=== PATIENT | female | born 1935 | race Caucasian/White ===

== ENCOUNTER 2016-04-01 16:59 | Emergency (ER) | payer OTHER ==
[~2016-04-01] VITALS: Ht 157.5 cm; Wt 59.9 kg
[~2016-04-01 16:59] MED LIST: ATEN-60; CETI10CH3; DIGO0.1262; FURO20TA3; LISI-275; OME20GT; POTA10CA29; WARF2.5T; WARF5TAB OR
[2016-04-01 18:03] LABS: Basophils # (auto) 0 uL; Basophils % (auto) 0.3 % (0.0-2.0); Eosinophils # (auto) 0.2 uL; Eosinophils % (auto) 2.6 % (0.0-7.0); Hematocrit 42.2 % (36.0-46.0); Hemoglobin 13.9 g/dL (12.2-16.2); Lymphocytes # (auto) 1.1 uL; Mean Corpuscular Hemoglobin 31.5 pg (28.0-32.0); Mean Corpuscular Hgb Conc. 32.8 g/dL (32.0-36.0); Mean Platelet Volume 8.3 fL (7.4-10.4); Monocytes # (auto) 0.5 uL; Monocytes % (auto) 6.7 % (0.0-12.0); Neutrophils # (auto) 5.9 uL; Neutrophils % (auto) 76.4 % (37.0-80.0); Platelet Count (auto) 210 10^3/uL (140-450); Red Cell Distribution Width 14.7 % (11.6-16.0); White Blood Cell 7.7 10^3/uL (4.4-10.8)
[2016-04-01 18:18] LABS: Albumin 3.8 g/dL (3.4-5.0); BUN/Creatinine Ratio 16.3; Bilirubin, Total 0.7 mg/dL (0.2-1.0); Calcium 9.3 mg/dL (8.5-10.1); Magnesium 2.2 mg/dL (1.6-2.6); Potassium 3.7 mmol/L (3.5-5.1); Total Protein 7.6 g/dL (6.4-8.2)
[2016-04-02 03:59] VITALS: BP 139/110
== END 2016-04-02 05:10 | disposition home or self-care (01) ==
LOC: ER 17:01
DX: I51.7 Cardiomegaly (principal); I48.91 Unspecified atrial fibrillation; Z95.0 Presence of cardiac pacemaker; I10 Essential (primary) hypertension; E78.5 Hyperlipidemia, unspecified
CPT/HCPCS: 36415; 71020; 80053; 83735; 84484; 85025; 85049; 93005

== ENCOUNTER 2016-09-04 11:03 | Inpatient (IN) | payer OTHER ==
[~2016-09-04] VITALS: Ht 157.5 cm; Wt 58.2 kg
[2016-09-04 11:56] LABS: Basophils # (auto) 0 uL; CONDITION Y; Eosinophils # (auto) 0 uL; Eosinophils % (auto) 0.1 % (0.0-7.0); Hematocrit 46.5 % (36.0-46.0); Hemoglobin 15.6 g/dL (12.2-16.2); Lymphocytes # (auto) 1.4 uL; Lymphocytes % (auto) 9.9 % (10.0-50.0); Mean Corpuscular Hemoglobin 32.3 pg (28.0-32.0); Mean Corpuscular Hgb Conc. 33.6 g/dL (32.0-36.0); Mean Platelet Volume 8.2 fL (7.4-10.4); Monocytes # (auto) 0.4 uL; Monocytes % (auto) 3.1 % (0.0-12.0); Neutrophils # (auto) 11.9 uL; Neutrophils % (auto) 86.9 % (37.0-80.0); Platelet Count (auto) 265 10^3/uL (140-450); Red Cell Distribution Width 15.7 % (11.6-16.0); White Blood Cell 13.8 10^3/uL (4.4-10.8)
[2016-09-04 12:18] LABS: BUN/Creatinine Ratio 12.9; Bilirubin, Total 0.8 mg/dL (0.2-1.0); Magnesium 2.4 mg/dL (1.6-2.6); Potassium 3.3 mmol/L (3.5-5.1); Total Protein 8.3 g/dL (6.4-8.2)
[2016-09-04] MEDS: SODIUM CHLORIDE 0.9% 1,000 ML IV SCH ×2 (13:00→13:21)
[2016-09-04] MEDS ORDERED: MORPHINE SULF INJ 2 MG/ML SYRINGE 1ML IV ONE (13:00)
[2016-09-04] MEDS ORDERED: ONDANSETRON HCL 4 MG/2 ML VIAL IV ONE (13:15)
[2016-09-04 13:20] LABS: Partial Thromboplastin Time 32.9 sec (22.64-33.71)
[2016-09-04 13:22] LABS: INR 2.26 (0.9-1.15); Prothrombin Time 24.8 sec (9.37-12.3)
[2016-09-04] MEDS ORDERED: PIPERACILLIN-TAZOB 3.375GM 100 ML IV ONE (14:15)
[2016-09-04 14:34] LABS: Urine Bilirubin Negative (Negative); Urine Blood Negative /uL (Negative); Urine Color Yellow (Yellow); Urine Ketone TRACE (Negative); Urine Nitrite Negative (Negative); Urine RBC 1 /hpf (0 - 4); Urine Urobilinogen Normal (Negative)
[2016-09-04 14:35] LABS: Urine Glucose 3+ mg/dL (Normal)
[2016-09-04 14:46] LABS: B-Type Natriuretic Peptide 404.43 pg/mL (0-100)
[2016-09-04 14:49] LABS: Temperature: 22.5 C (20.0-25.0)
[2016-09-04] MEDS ORDERED: PANTOPRAZOLE SODIUM 40 MG/10 ML VIAL IV ONE (15:45)
[2016-09-04] MEDS ORDERED: MORPHINE SULF INJ 2 MG/ML SYRINGE 1ML IV PRN (15:45)
[2016-09-04] MEDS ORDERED: SODIUM CHLORIDE 0.9% 1,000 ML IV ONE (15:45)
[2016-09-04] MEDS ORDERED: POTASSIUM CHLORIDE 40 MEQ, LIDOCAINE 1% (LOCAL ANESTH.) 4 ML in SODIUM CHL 0.9% 250 ML IV ONE (15:45)
[2016-09-04] MEDS ORDERED: NITROGLYCERIN 0.4 MG SL TAB SL PRN (15:45)
[2016-09-04] MEDS: metroNIDAZOLE 500MG/100ML 100 ML IV SCH (16:23)
[2016-09-04] MEDS ORDERED: metroNIDAZOLE 500MG/100ML 100 ML IV ONE (16:30)
[2016-09-04 19:00] VITALS: BP 165/96
[2016-09-04] MEDS: HYDROmorphone HCL 2 MG/ML VL IV PRN (19:50)
[2016-09-04] MEDS: ONDANSETRON HCL 4 MG/2 ML VIAL IV PRN (19:50)
[2016-09-04] MEDS: cefTRIAXone 1GM/50ML D5W 50 ML IV SCH (20:08)
[2016-09-04 22:00] VITALS: BP 122/90
[2016-09-05] VITALS (14 sets, daily range): BP systolic 126–141; BP diastolic 63–90
[2016-09-05] MEDS: HYDROmorphone HCL 2 MG/ML VL IV PRN ×2 (00:47→11:24)
[2016-09-05] MEDS: metroNIDAZOLE 500MG/100ML 100 ML IV SCH ×3 (06:05→22:28)
[2016-09-05 07:11] LABS: Basophils # (auto) 0.1 uL; Basophils % (auto) 0.3 % (0.0-2.0); CONDITION Y; Eosinophils # (auto) 0 uL; Hematocrit 40.5 % (36.0-46.0); Hemoglobin 13.4 g/dL (12.2-16.2); Lymphocytes # (auto) 1.2 uL; Lymphocytes % (auto) 6.3 % (10.0-50.0); Mean Corpuscular Hgb Conc. 33.1 g/dL (32.0-36.0); Mean Corpuscular Volume 96.8 fL (80.0-100.0); Mean Platelet Volume 8.8 fL (7.4-10.4); Monocytes # (auto) 1.1 uL; Monocytes % (auto) 5.9 % (0.0-12.0); Neutrophils # (auto) 16.7 uL; Neutrophils % (auto) 87.5 % (37.0-80.0); Partial Thromboplastin Time 34.4 sec (22.64-33.71); Platelet Count (auto) 280 10^3/uL (140-450); Red Cell Distribution Width 15.7 % (11.6-16.0); White Blood Cell 19.1 10^3/uL (4.4-10.8)
[2016-09-05 07:22] LABS: BUN/Creatinine Ratio 15.6
[2016-09-05 07:33] LABS: INR 2.45 (0.9-1.15); Prothrombin Time 26.9 sec (9.37-12.3)
[2016-09-05] MEDS: cefTRIAXone 1GM/50ML D5W 50 ML IV SCH (08:47)
[2016-09-05] MEDS ORDERED: PHYTONADIONE (VIT K)10 MG/ML 1ML VIAL SUBCUT ONE (09:30)
[2016-09-05] MEDS: ONDANSETRON HCL 4 MG/2 ML VIAL IV PRN (11:25)
[2016-09-05] MEDS: PANTOPRAZOLE SODIUM 40 MG/10 ML VIAL IV SCH (11:27)
[2016-09-05] MEDS ORDERED: DIGOXIN (250MCG/ML) 2 ML AMPULE IV ONE (11:45)
[2016-09-05] MEDS: SODIUM CHLORIDE 0.9% 1,000 ML IV SCH ×2 (12:16→22:27)
[2016-09-05] MEDS ORDERED: SODIUM CHLORIDE 0.9% 1,000 ML IV SCH (13:15)
[2016-09-05 14:03] LABS: INR 2.8 (0.9-1.15); Partial Thromboplastin Time 36.3 sec (22.64-33.71)
[2016-09-05 14:12] LABS: Prothrombin Time 30.8 sec (9.37-12.3)
[2016-09-05] MEDS ORDERED: RANI300C7 PO (17:04)
[2016-09-05] MEDS ORDERED: AMLO2.5T PO (17:05)
[2016-09-06] VITALS (33 sets, daily range): BP systolic 132–173; BP diastolic 49–84
[2016-09-06] MEDS: metroNIDAZOLE 500MG/100ML 100 ML IV SCH ×3 (06:16→21:39)
[2016-09-06] MEDS: SODIUM CHLORIDE 0.9% 1,000 ML IV SCH ×3 (06:16→21:41)
[2016-09-06 08:25] LABS: Basophils # (auto) 0 uL; CONDITION Y; Eosinophils # (auto) 0 uL; Hematocrit 31.2 % (36.0-46.0); Hemoglobin 10.5 g/dL (12.2-16.2); Lymphocytes # (auto) 1.1 uL; Lymphocytes % (auto) 6.2 % (10.0-50.0); Mean Corpuscular Hemoglobin 32.1 pg (28.0-32.0); Mean Corpuscular Hgb Conc. 33.8 g/dL (32.0-36.0); Mean Corpuscular Volume 95.1 fL (80.0-100.0); Mean Platelet Volume 8.9 fL (7.4-10.4); Monocytes # (auto) 0.9 uL; Monocytes % (auto) 5.4 % (0.0-12.0); Neutrophils # (auto) 15.2 uL; Neutrophils % (auto) 88.4 % (37.0-80.0); Platelet Count (auto) 229 10^3/uL (140-450); Red Cell Distribution Width 15.4 % (11.6-16.0); SUSPECT SEE PRINTOUT; White Blood Cell 17.3 10^3/uL (4.4-10.8)
[2016-09-06 08:45] LABS: INR 1.59 (0.9-1.15); Partial Thromboplastin Time 28.7 sec (22.64-33.71)
[2016-09-06 08:53] LABS: Prothrombin Time 17.4 sec (9.37-12.3)
[2016-09-06] MEDS: cefTRIAXone 1GM/50ML D5W 50 ML IV SCH (09:00)
[2016-09-06 09:01] LABS: Albumin 2.8 g/dL (3.4-5.0); BUN/Creatinine Ratio 20.3; Calcium 8.3 mg/dL (8.5-10.1); Potassium 4.2 mmol/L (3.5-5.1)
[2016-09-06 09:04] LABS: Total Protein 6.6 g/dL (6.4-8.2)
[2016-09-06] MEDS: PANTOPRAZOLE SODIUM 40 MG/10 ML VIAL IV SCH (10:00)
[2016-09-06] MEDS: DIGOXIN (250MCG/ML) 2 ML AMPULE ONE ×2 (11:27→11:53)
[2016-09-06] MEDS ORDERED: fentaNYL CITRATE 100 MCG/2 ML VL ONE (11:59)
[2016-09-06] MEDS ORDERED: ONDANSETRON HCL 4 MG/2 ML VIAL ONE (12:02)
[2016-09-06] MEDS ORDERED: KETOROLAC TROMETH 60MG/2ML VIAL IM ONE (12:02)
[2016-09-06] MEDS ORDERED: DEXAMETHASONE SOD PHOS 10MG/1ML VIAL INJ ONE (12:02)
[2016-09-06] MEDS ORDERED: DILTIAZEM 125mg/125ml BAG KIT 100 ML IV ONE (12:05)
[2016-09-06] MEDS ORDERED: MIDAZOLAM HCL 1MG/1ML-2 ML VIAL ONE ×2 (12:14→14:06)
[2016-09-06] MEDS ORDERED: ceFAZolin 1GM/50ML D5W 50 ML IV ONE (13:05)
[2016-09-06] MEDS ORDERED: GENTAMICIN SULF 80 MG/2 ML VIAL ONE (13:19)
[2016-09-06] MEDS ORDERED: MIDAZOLAM DRIP 100 mg/100mL NS 100 ML IV ONE (14:45)
[2016-09-06] MEDS ORDERED: MIDAZOLAM HCL 1MG/1ML-2 ML VIAL IV PRN (14:45)
[2016-09-06] MEDS: DILTIAZEM 125mg/125ml BAG KIT 125 ML IV SCH (15:00)
[2016-09-06] MEDS: MIDAZOLAM DRIP 100 mg/100mL NS 100 ML IV SCH (15:00)
[2016-09-06 15:15] LABS: Allen Test Modified; Base Excess -5.9 mmol/L (-2.0-2.0); Blood 02Sat 97.8 % (96-100); Blood COHb 0.6 % (0.5-1.5); Blood MetHb 0.3 % (0.0-1.5); HCO3 18.5 mmol/L (22-26.0); HHb 2.2 % (0.0-5.0); MODE VENT - A/C; O2Hb 96.9 % (94.0-97.0); PCO2 33.5 mmHg (35.0-45.0); PCO2(T) 33.5 mmHg (35.0-45.0); PO2 128.3 mmHg (80.0-100.0); PO2(T) 128.3 mmHg (80.0-100.0); Room 0216T; Sample Type Arterial; pH 7.361 (7.350-7.450)
[2016-09-06] MEDS: ENALAPRILAT 1.25 MG/ML-1ML VIAL IV PRN (16:04)
[2016-09-06] MEDS: ceFAZolin 1GM/50ML D5W 50 ML IV SCH (18:07)
[2016-09-07] VITALS (100 sets, daily range): BP systolic 126–166; BP diastolic 45–87
[2016-09-07] MEDS: ENALAPRILAT 1.25 MG/ML-1ML VIAL IV PRN (02:51)
[2016-09-07 03:42] LABS: CONDITION Y; Hematocrit 39.4 % (36.0-46.0); Hemoglobin 13.1 g/dL (12.2-16.2); Mean Corpuscular Hemoglobin 31.3 pg (28.0-32.0); Mean Corpuscular Hgb Conc. 33.1 g/dL (32.0-36.0); Mean Corpuscular Volume 94.6 fL (80.0-100.0); Mean Platelet Volume 8.8 fL (7.4-10.4); Platelet Count (auto) 170 10^3/uL (140-450); SUSPECT SEE PRINTOUT; White Blood Cell 12.8 10^3/uL (4.4-10.8)
[2016-09-07 04:02] LABS: Albumin 2.2 g/dL (3.4-5.0); Calcium 7.7 mg/dL (8.5-10.1); Potassium 3.6 mmol/L (3.5-5.1)
[2016-09-07 04:04] LABS: BUN/Creatinine Ratio 25.2
[2016-09-07 04:07] LABS: Bilirubin, Total 1.3 mg/dL (0.2-1.0); Total Protein 5.7 g/dL (6.4-8.2)
[2016-09-07 04:11] LABS: Metamyelocytes % 0; Myelocytes % 0; Promyelocytes % 0; Reactive Lymphocytes 0
[2016-09-07 04:12] LABS: INR 1.31 (0.9-1.15); Partial Thromboplastin Time 32.2 sec (22.64-33.71)
[2016-09-07 04:13] LABS: Prothrombin Time 14.3 sec (9.37-12.3)
[2016-09-07 04:44] LABS: Large Platelets FEW; Platelet Estimate Adequa; Poikilocytosis Slight
[2016-09-07 04:45] LABS: Ovalocytes FEW
[2016-09-07] MEDS: ceFAZolin 1GM/50ML D5W 50 ML IV SCH ×2 (06:09)
[2016-09-07] MEDS: metroNIDAZOLE 500MG/100ML 100 ML IV SCH ×4 (06:09→21:43)
[2016-09-07 06:37] LABS: Allen Test Modified; Base Excess -3.7 mmol/L (-2.0-2.0); Blood COHb 0.7 % (0.5-1.5); Blood MetHb 0.2 % (0.0-1.5); HCO3 19.4 mmol/L (22-26.0); MODE VENT - A/C; O2Hb 96.1 % (94.0-97.0); PCO2 29.8 mmHg (35.0-45.0); PCO2(T) 29.8 mmHg (35.0-45.0); PO2 94.5 mmHg (80.0-100.0); PO2(T) 94.5 mmHg (80.0-100.0); Sample Type Arterial; pH 7.432 (7.350-7.450)
[2016-09-07] MEDS: cefTRIAXone 1GM/50ML D5W 50 ML IV SCH (07:59)
[2016-09-07] MEDS: PANTOPRAZOLE SODIUM 40 MG/10 ML VIAL IV SCH (10:20)
[2016-09-07] MEDS: D5W/SOD CHL 0.45%/KCL 20MEQ 1,000 ML IV SCH (11:33)
[2016-09-07] MEDS: DILTIAZEM 125mg/125ml BAG KIT 125 ML IV SCH (12:34)
[2016-09-07] MEDS: MIDAZOLAM DRIP 100 mg/100mL NS 100 ML IV SCH (19:20)
[2016-09-08] VITALS (93 sets, daily range): BP systolic 112–175; BP diastolic 47–93
[2016-09-08] MEDS: D5W/SOD CHL 0.45%/KCL 20MEQ 1,000 ML IV SCH (03:00)
[2016-09-08 03:51] LABS: CONDITION Y; Hematocrit 35.5 % (36.0-46.0); Hemoglobin 11.9 g/dL (12.2-16.2); Mean Corpuscular Hemoglobin 31.5 pg (28.0-32.0); Mean Corpuscular Hgb Conc. 33.5 g/dL (32.0-36.0); Mean Corpuscular Volume 94.1 fL (80.0-100.0); Mean Platelet Volume 8.9 fL (7.4-10.4); Platelet Count (auto) 150 10^3/uL (140-450); Red Cell Distribution Width 16.6 % (11.6-16.0); SUSPECT SEE PRINTOUT; White Blood Cell 16.4 10^3/uL (4.4-10.8)
[2016-09-08 04:09] LABS: Metamyelocytes % 0; Myelocytes % 0; Promyelocytes % 0; Reactive Lymphocytes 0
[2016-09-08 04:19] LABS: BUN/Creatinine Ratio 42.4; Calcium 7.3 mg/dL (8.5-10.1)
[2016-09-08 05:01] LABS: Platelet Estimate Adequate
[2016-09-08 05:02] LABS: Anisocytosis Slight
[2016-09-08] MEDS: metroNIDAZOLE 500MG/100ML 100 ML IV SCH ×3 (05:42→22:00)
[2016-09-08] MEDS: cefTRIAXone 1GM/50ML D5W 50 ML IV SCH (08:21)
[2016-09-08] MEDS: PANTOPRAZOLE SODIUM 40 MG/10 ML VIAL IV SCH (09:16)
[2016-09-08 09:26] LABS: Allen Test Yes; Base Excess -2.8 mmol/L (-2.0-2.0); Blood 02Sat 97.1 % (96-100); Blood COHb 0.2 % (0.5-1.5); Blood MetHb 0.4 % (0.0-1.5); HCO3 19.9 mmol/L (22-26.0); HHb 2.9 % (0.0-5.0); IE RATIO 1.2.6; MODE VENT - A/C; O2Hb 96.5 % (94.0-97.0); PCO2 28.7 mmHg (35.0-45.0); PCO2(T) 28.7 mmHg (35.0-45.0); PIP 21; PO2 97.9 mmHg (80.0-100.0); PO2(T) 97.9 mmHg (80.0-100.0); Sample Type Arterial; Spont Vt 524; pH 7.458 (7.350-7.450)
[2016-09-08] MEDS ORDERED: FUROSEMIDE 40 MG/4 ML VIAL IV ONE (11:00)
[2016-09-08] MEDS ORDERED: MIDAZOLAM HCL 1MG/1ML-2 ML VIAL IV PRN (11:00)
[2016-09-08] MEDS: POTASSIUM CHLORIDE 40 MEQ in D5W 5% 1,000 ML IV SCH (11:31)
[2016-09-08] MEDS: MIDAZOLAM DRIP 100 mg/100mL NS 100 ML IV SCH (14:50)
[2016-09-08] MEDS: DILTIAZEM 125mg/125ml BAG KIT 125 ML IV SCH (15:00)
[2016-09-08] MEDS: PROPOFOL 100 ML IV SCH (15:18)
[2016-09-09] VITALS (34 sets, daily range): BP systolic 100–185; BP diastolic 53–110
[2016-09-09] MEDS: POTASSIUM CHLORIDE 40 MEQ in D5W 5% 1,000 ML IV SCH ×3 (01:06→18:10)
[2016-09-09 04:05] LABS: CONDITION Y; Hematocrit 39.1 % (36.0-46.0); Mean Corpuscular Hemoglobin 31.3 pg (28.0-32.0); Mean Corpuscular Hgb Conc. 33.3 g/dL (32.0-36.0); Mean Corpuscular Volume 94.2 fL (80.0-100.0); Platelet Count (auto) 154 10^3/uL (140-450); Red Cell Distribution Width 16.5 % (11.6-16.0); SUSPECT SEE PRINTOUT; White Blood Cell 20.8 10^3/uL (4.4-10.8)
[2016-09-09 04:10] LABS: Metamyelocytes % 0; Myelocytes % 0; Promyelocytes % 0; Reactive Lymphocytes 0
[2016-09-09 04:39] LABS: BUN/Creatinine Ratio 52.6; Calcium 7.8 mg/dL (8.5-10.1); Magnesium 2.2 mg/dL (1.6-2.6); Potassium 4.2 mmol/L (3.5-5.1)
[2016-09-09 05:28] LABS: Platelet Estimate Adequate; Polychromasia Slight
[2016-09-09 05:29] LABS: Large Platelets FEW; Ovalocytes FEW
[2016-09-09] MEDS: metroNIDAZOLE 500MG/100ML 100 ML IV SCH ×3 (05:52→22:00)
[2016-09-09] MEDS: HYDROmorphone HCL 2 MG/ML VL IV PRN ×2 (08:27→21:25)
[2016-09-09] MEDS: PANTOPRAZOLE SODIUM 40 MG/10 ML VIAL IV SCH (09:49)
[2016-09-09] MEDS: cefTRIAXone 1GM/50ML D5W 50 ML IV SCH (09:49)
[2016-09-09] MEDS ORDERED: VANCOMYCIN PER PHARMACY 0 MG IV SCH (10:45)
[2016-09-09] MEDS: VANCOMYCIN 1GM/250ML D5W 250 ML IV SCH (13:25)
[2016-09-09] MEDS: DILTIAZEM 125mg/125ml BAG KIT 125 ML IV SCH (15:00)
[2016-09-09] MEDS: PROPOFOL 100 ML IV SCH (15:18)
[2016-09-09] MEDS ORDERED: TPN PER PHARMACY 0 ML IV SCH (18:15)
[2016-09-09] MEDS ORDERED: AMINO ACID INFUSION IN D10W 1,000 ML IV ONE (20:00)
[2016-09-10] VITALS (26 sets, daily range): BP systolic 103–204; BP diastolic 51–117
[2016-09-10] MEDS ORDERED: DEXTROSE (50%) 50ML SYRG IV SCH
[2016-09-10 04:20] LABS: Basophils # (auto) 0 uL; Basophils % (auto) 0.3 % (0.0-2.0); CONDITION Y; Eosinophils # (auto) 0.2 uL; Eosinophils % (auto) 2.1 % (0.0-7.0); Hematocrit 35.3 % (36.0-46.0); Hemoglobin 11.9 g/dL (12.2-16.2); Lymphocytes # (auto) 1.7 uL; Mean Corpuscular Hemoglobin 31.7 pg (28.0-32.0); Mean Corpuscular Hgb Conc. 33.8 g/dL (32.0-36.0); Mean Corpuscular Volume 93.8 fL (80.0-100.0); Mean Platelet Volume 7.9 fL (7.4-10.4); Monocytes # (auto) 0.6 uL; Monocytes % (auto) 5.4 % (0.0-12.0); Neutrophils # (auto) 8.6 uL; Neutrophils % (auto) 77.2 % (37.0-80.0); Platelet Count (auto) 105 10^3/uL (140-450); Red Cell Distribution Width 15.9 % (11.6-16.0); White Blood Cell 11.1 10^3/uL (4.4-10.8)
[2016-09-10 04:54] LABS: Albumin 1.8 g/dL (3.4-5.0); BUN/Creatinine Ratio 64.9; Bilirubin, Total 0.8 mg/dL (0.2-1.0); Calcium 7.4 mg/dL (8.5-10.1); Phosphorus 1.5 mg/dL (2.5-4.90); Potassium 4.1 mmol/L (3.5-5.1); Total Protein 4.8 g/dL (6.4-8.2)
[2016-09-10] MEDS: metroNIDAZOLE 500MG/100ML 100 ML IV SCH ×3 (07:38→21:30)
[2016-09-10] MEDS: InsuLIN REG 1unit/0.01ml Soln (100units/ml) SC SCH ×4 (07:39→18:03)
[2016-09-10] MEDS: ACCU-CHEK COMFORT CURVE STRIP VI SCH ×4 (07:40→18:01)
[2016-09-10] MEDS ORDERED: POTASSIUM PHOSP 26.4MEQ(18MMOL) IN NS 100 ML IV ONE (09:00)
[2016-09-10] MEDS: ENALAPRILAT 1.25 MG/ML-1ML VIAL IV PRN ×2 (09:31→10:54)
[2016-09-10] MEDS: cefTRIAXone 1GM/50ML D5W 50 ML IV SCH (09:34)
[2016-09-10 09:59] LABS: Allen Test Yes; Base Excess -2.9 mmol/L (-2.0-2.0); Blood 02Sat 98.2 % (96-100); Blood COHb 1.3 % (0.5-1.5); Blood MetHb 0.2 % (0.0-1.5); HCO3 19.4 mmol/L (22-26.0); HHb 1.8 % (0.0-5.0); MODE VENT - CPAP; O2Hb 96.7 % (94.0-97.0); PO2 132.8 mmHg (80.0-100.0); PO2(T) 132.8 mmHg (80.0-100.0); Pressure Support 8; Sample Type Arterial; Spont Vt 357; pH 7.459 (7.350-7.450)
[2016-09-10] MEDS: PANTOPRAZOLE SODIUM 40 MG/10 ML VIAL IV SCH (10:18)
[2016-09-10] MEDS ORDERED: POTASSIUM CHLORIDE 40 MEQ in D5W 5% 1,000 ML IV SCH (11:30)
[2016-09-10] MEDS: VANCOMYCIN 1GM/250ML D5W 250 ML IV SCH (12:18)
[2016-09-10] MEDS: DILTIAZEM 125mg/125ml BAG KIT 125 ML IV SCH (15:00)
[2016-09-10] MEDS: hydrALAZINE HCL 20 MG/ML VL IV PRN (15:08)
[2016-09-10] MEDS: PROPOFOL 100 ML IV SCH (15:18)
[2016-09-10] MEDS: HYDROmorphone HCL 2 MG/ML VL IV PRN (15:23)
[2016-09-10] MEDS ORDERED: TPN PER PHARMACY IV NR ×10 (20:00)
[2016-09-11] VITALS: BP 112/52
[2016-09-11 04:00] VITALS: BP 141/71
[2016-09-11 05:19] LABS: Albumin 1.7 g/dL (3.4-5.0); BUN/Creatinine Ratio 39.7; Bilirubin, Total 1.3 mg/dL (0.2-1.0); Calcium 7.3 mg/dL (8.5-10.1); Magnesium 1.8 mg/dL (1.6-2.6); Phosphorus 3.4 mg/dL (2.5-4.90); Potassium 4.2 mmol/L (3.5-5.1); Total Protein 4.4 g/dL (6.4-8.2)
[2016-09-11] MEDS: metroNIDAZOLE 500MG/100ML 100 ML IV SCH ×3 (05:51→22:08)
[2016-09-11] MEDS: InsuLIN REG 1unit/0.01ml Soln (100units/ml) SC SCH ×3 (05:54→12:17)
[2016-09-11] MEDS: ACCU-CHEK COMFORT CURVE STRIP VI SCH ×3 (05:54→11:51)
[2016-09-11 08:00] VITALS: BP 162/74
[2016-09-11] MEDS: cefTRIAXone 1GM/50ML D5W 50 ML IV SCH (10:01)
[2016-09-11] MEDS: PANTOPRAZOLE SODIUM 40 MG/10 ML VIAL IV SCH (10:01)
[2016-09-11] MEDS: SODIUM CHLORIDE 0.9% 1,000 ML IV SCH (11:52)
[2016-09-11] MEDS: VANCOMYCIN 1GM/250ML D5W 250 ML IV SCH (11:53)
[2016-09-11 12:00] VITALS: BP 157/79
[2016-09-11 13:14] LABS: INR 1.26 (0.9-1.15); Partial Thromboplastin Time 29.6 sec (22.64-33.71)
[2016-09-11 13:24] LABS: Prothrombin Time 13.8 sec (9.37-12.3)
[2016-09-11 16:00] VITALS: BP 143/98
[2016-09-11] MEDS ORDERED: WARFARIN SODIUM 2.5 MG TAB PO ONE (17:00)
[2016-09-11] MEDS: HYDROmorphone HCL 2 MG/ML VL IV PRN (18:02)
[2016-09-11 20:00] VITALS: BP 112/63
[2016-09-11] MEDS ORDERED: TPN PER PHARMACY IV NR ×10 (20:00)
[2016-09-12 05:09] LABS: CONDITION Y; Hematocrit 39.6 % (36.0-46.0); Hemoglobin 13.4 g/dL (12.2-16.2); Mean Corpuscular Hemoglobin 31.1 pg (28.0-32.0); Mean Corpuscular Hgb Conc. 33.8 g/dL (32.0-36.0); Mean Corpuscular Volume 91.9 fL (80.0-100.0); Mean Platelet Volume 10.1 fL (7.4-10.4); Platelet Count (auto) 79 10^3/uL (140-450); SUSPECT SEE PRINTOUT; White Blood Cell 29.2 10^3/uL (4.4-10.8)
[2016-09-12 05:24] LABS: Partial Thromboplastin Time 30.3 sec (22.64-33.71)
[2016-09-12 05:27] LABS: Metamyelocytes % 0; Myelocytes % 0; Promyelocytes % 0; Reactive Lymphocytes 0
[2016-09-12 05:47] LABS: Albumin 1.9 g/dL (3.4-5.0); BUN/Creatinine Ratio 35.6; Bilirubin, Total 1.1 mg/dL (0.2-1.0); Calcium 7.7 mg/dL (8.5-10.1); Magnesium 1.9 mg/dL (1.6-2.6); Phosphorus 3.8 mg/dL (2.5-4.90); Potassium 4.2 mmol/L (3.5-5.1); Total Protein 5.2 g/dL (6.4-8.2)
[2016-09-12] MEDS: metroNIDAZOLE 500MG/100ML 100 ML IV SCH ×3 (06:28→22:00)
[2016-09-12 06:38] LABS: Hypersegmented Neutrophils Present
[2016-09-12 06:42] LABS: Schistocytes FEW
[2016-09-12 06:43] LABS: Anisocytosis Slight; Burr Cells FEW; Large Platelets FEW; Ovalocytes FEW; Platelet Estimate Decrea
[2016-09-12 06:50] LABS: INR 1.25 (0.9-1.15)
[2016-09-12 06:53] LABS: Prothrombin Time 13.7 sec (9.37-12.3)
[2016-09-12] MEDS: cefTRIAXone 1GM/50ML D5W 50 ML IV SCH (09:08)
[2016-09-12] MEDS: PANTOPRAZOLE SODIUM 40 MG/10 ML VIAL IV SCH (09:57)
[2016-09-12 12:00] VITALS: BP 103/75
[2016-09-12] MEDS: SODIUM CHLORIDE 0.9% 1,000 ML IV SCH (12:00)
[2016-09-12] MEDS: VANCOMYCIN 1GM/250ML D5W 250 ML IV SCH (12:00)
[2016-09-12 16:00] VITALS: BP_SYST 130; BP_SYST 137; BP_DIAS 82; BP_DIAS 95
[2016-09-12] MEDS ORDERED: WARFARIN SODIUM 2 MG TAB PO ONE (17:00)
[2016-09-12 20:00] VITALS: BP 136/66
[2016-09-12] MEDS: HYDROmorphone HCL 2 MG/ML VL IV PRN (20:54)
[2016-09-13] VITALS: BP 130/74
[2016-09-13 03:00] VITALS: BP 132/68
[2016-09-13 05:38] LABS: CONDITION Y; Hematocrit 34.9 % (36.0-46.0); Hemoglobin 11.7 g/dL (12.2-16.2); Mean Corpuscular Hemoglobin 31.4 pg (28.0-32.0); Mean Corpuscular Hgb Conc. 33.6 g/dL (32.0-36.0); Mean Corpuscular Volume 93.4 fL (80.0-100.0); Mean Platelet Volume 10.6 fL (7.4-10.4); Platelet Count (auto) 162 10^3/uL (140-450); Red Cell Distribution Width 16.8 % (11.6-16.0); SUSPECT SEE PRINTOUT; White Blood Cell 24.4 10^3/uL (4.4-10.8)
[2016-09-13 05:48] LABS: Metamyelocytes % 0; Myelocytes % 0; Promyelocytes % 0; Reactive Lymphocytes 0
[2016-09-13 05:52] LABS: INR 1.55 (0.9-1.15); Partial Thromboplastin Time 30.3 sec (22.64-33.71)
[2016-09-13 05:58] LABS: Calcium 7.6 mg/dL (8.5-10.1); Potassium 4.5 mmol/L (3.5-5.1)
[2016-09-13] MEDS: VANCOMYCIN 1GM/250ML D5W 250 ML IV SCH (06:00)
[2016-09-13] MEDS: metroNIDAZOLE 500MG/100ML 100 ML IV SCH ×3 (06:20→21:39)
[2016-09-13 06:57] LABS: Anisocytosis Slight; Burr Cells FEW; Hypersegmented Neutrophils Present; Platelet Estimate Adequate; Schistocytes FEW
[2016-09-13 06:58] LABS: Ovalocytes FEW
[2016-09-13 08:00] VITALS: BP 154/86
[2016-09-13] MEDS: cefTRIAXone 1GM/50ML D5W 50 ML IV SCH (09:03)
[2016-09-13] MEDS: SODIUM CHLORIDE 0.9% 1,000 ML IV SCH ×2 (09:03→21:38)
[2016-09-13] MEDS: HYDROmorphone HCL 2 MG/ML VL IV PRN ×2 (09:16→21:39)
[2016-09-13] MEDS: PANTOPRAZOLE SODIUM 40 MG/10 ML VIAL IV SCH (09:19)
[2016-09-13 12:00] VITALS: BP 136/69
[2016-09-13] MEDS ORDERED: MORPHINE SULFATE 4 MG/ML SYRG IV PRN (14:05)
[2016-09-13 16:00] VITALS: BP 149/75
[2016-09-13] MEDS ORDERED: WARFARIN SODIUM 5 MG TAB PO ONE (17:00)
[2016-09-13 20:00] VITALS: BP 156/55
[2016-09-13] MEDS: hydrALAZINE HCL 20 MG/ML VL IV PRN (22:05)
[2016-09-14] VITALS: BP 146/81
[2016-09-14 04:00] VITALS: BP 122/61
[2016-09-14] MEDS: SODIUM CHLORIDE 0.9% 1,000 ML IV SCH ×2 (05:29→22:50)
[2016-09-14] MEDS: metroNIDAZOLE 500MG/100ML 100 ML IV SCH (05:31)
[2016-09-14 05:57] LABS: Basophils # (auto) 0 uL; Basophils % (auto) 0.1 % (0.0-2.0); CONDITION Y; Eosinophils # (auto) 0.4 uL; Eosinophils % (auto) 2.3 % (0.0-7.0); Hemoglobin 10.4 g/dL (12.2-16.2); Lymphocytes # (auto) 1.3 uL; Lymphocytes % (auto) 8.3 % (10.0-50.0); Mean Corpuscular Hemoglobin 31.4 pg (28.0-32.0); Mean Corpuscular Hgb Conc. 33.5 g/dL (32.0-36.0); Mean Corpuscular Volume 93.5 fL (80.0-100.0); Mean Platelet Volume 9.6 fL (7.4-10.4); Monocytes % (auto) 6.5 % (0.0-12.0); Neutrophils # (auto) 13.2 uL; Neutrophils % (auto) 82.8 % (37.0-80.0); Platelet Count (auto) 170 10^3/uL (140-450); Red Cell Distribution Width 16.6 % (11.6-16.0)
[2016-09-14 06:06] LABS: INR 2.62 (0.9-1.15); Partial Thromboplastin Time 35.6 sec (22.64-33.71)
[2016-09-14 06:23] LABS: BUN/Creatinine Ratio 35.9; Calcium 7.6 mg/dL (8.5-10.1)
[2016-09-14 06:26] LABS: Prothrombin Time 28.8 sec (9.37-12.3)
[2016-09-14] MEDS: cefTRIAXone 1GM/50ML D5W 50 ML IV SCH (09:19)
[2016-09-14] MEDS: FAMOTIDINE 20 MG TAB PO SCH (11:44)
[2016-09-14 12:00] VITALS: BP 150/90
[2016-09-14] MEDS: metroNIDAZOLE 500 MG TAB PO SCH ×2 (14:29→21:58)
[2016-09-14 15:56] VITALS: BP 153/81
[2016-09-14] MEDS ORDERED: WARFARIN SODIUM 1 MG TAB PO ONE (17:00)
[2016-09-14] MEDS: VANCOMYCIN 1GM/250ML D5W 250 ML IV SCH (17:49)
[2016-09-14] MEDS: HYDROmorphone HCL 2 MG/ML VL IV PRN (21:58)
[2016-09-14 22:00] VITALS: BP 153/70
[2016-09-15 05:38] VITALS: BP 158/72
[2016-09-15] MEDS: metroNIDAZOLE 500 MG TAB PO SCH ×3 (06:00→21:35)
[2016-09-15] MEDS: HYDROmorphone HCL 2 MG/ML VL IV PRN (06:44)
[2016-09-15 06:48] LABS: BUN/Creatinine Ratio 32.4; Calcium 7.4 mg/dL (8.5-10.1); Potassium 3.7 mmol/L (3.5-5.1)
[2016-09-15 07:23] VITALS: BP 168/87
[2016-09-15] MEDS: FAMOTIDINE 20 MG TAB PO SCH (08:43)
[2016-09-15] MEDS: cefTRIAXone 1GM/50ML D5W 50 ML IV SCH (08:43)
[2016-09-15] MEDS: hydrALAZINE HCL 20 MG/ML VL IV PRN (08:43)
[2016-09-15 12:03] LABS: CONDITION Y; Hematocrit 34.4 % (36.0-46.0); Hemoglobin 11.5 g/dL (12.2-16.2); Mean Corpuscular Hemoglobin 31.3 pg (28.0-32.0); Mean Corpuscular Hgb Conc. 33.5 g/dL (32.0-36.0); Mean Corpuscular Volume 93.4 fL (80.0-100.0); Mean Platelet Volume 9.2 fL (7.4-10.4); Platelet Count (auto) 260 10^3/uL (140-450); Red Cell Distribution Width 16.5 % (11.6-16.0); SUSPECT SEE PRINTOUT; White Blood Cell 17.9 10^3/uL (4.4-10.8)
[2016-09-15 12:07] VITALS: BP 168/68
[2016-09-15 12:11] LABS: Metamyelocytes % 0; Myelocytes % 0; Promyelocytes % 0; Reactive Lymphocytes 0
[2016-09-15 12:25] LABS: Platelet Estimate Adequate
[2016-09-15 12:26] LABS: RBC Morphology Normal
[2016-09-15] MEDS ORDERED: FLUCONAZOLE 200MG/100ML 100 ML IV ONE (12:45)
[2016-09-15] MEDS ORDERED: FUROSEMIDE 40 MG/4 ML VIAL IV ONE (12:45)
[2016-09-15] MEDS ORDERED: POTASSIUM CHL 20 Meq TABLET PO ONE (12:45)
[2016-09-15] MEDS ORDERED: ATENOLOL 25 MG TAB PO ONE (12:45)
[2016-09-15 14:03] LABS: Partial Thromboplastin Time 29.9 sec (22.64-33.71)
[2016-09-15 14:04] LABS: Prothrombin Time 46.5 sec (9.37-12.3)
[2016-09-15 14:07] LABS: INR 4.2 (0.9-1.15)
[2016-09-15 16:54] VITALS: BP 181/70
[2016-09-15] MEDS: BOOST 8 ounces PO SCH (18:22)
[2016-09-15 18:48] VITALS: BP 153/77
[2016-09-15] MEDS: HYDROcodone-ACET 5/325MG TAB PO PRN (20:13)
[2016-09-15] MEDS: ATENOLOL 25 MG TAB PO SCH (21:36)
[2016-09-15 22:00] VITALS: BP 157/76
[2016-09-16] MEDS: hydrALAZINE HCL 20 MG/ML VL IV PRN (03:31)
[2016-09-16] MEDS: HYDROcodone-ACET 5/325MG TAB PO PRN ×3 (03:38→23:53)
[2016-09-16 05:00] VITALS: BP 151/75
[2016-09-16] MEDS: metroNIDAZOLE 500 MG TAB PO SCH ×3 (05:50→22:19)
[2016-09-16] MEDS: VANCOMYCIN 1GM/250ML D5W 250 ML IV SCH (05:50)
[2016-09-16 06:44] LABS: Basophils # (auto) 0 uL; Basophils % (auto) 0.1 % (0.0-2.0); CONDITION Y; Eosinophils # (auto) 0.2 uL; Eosinophils % (auto) 1.3 % (0.0-7.0); Hematocrit 30.2 % (36.0-46.0); Hemoglobin 10.1 g/dL (12.2-16.2); Lymphocytes # (auto) 1.3 uL; Lymphocytes % (auto) 9.3 % (10.0-50.0); Mean Corpuscular Hemoglobin 31.6 pg (28.0-32.0); Mean Corpuscular Hgb Conc. 33.4 g/dL (32.0-36.0); Mean Corpuscular Volume 94.6 fL (80.0-100.0); Mean Platelet Volume 9.2 fL (7.4-10.4); Monocytes # (auto) 1.1 uL; Monocytes % (auto) 8.4 % (0.0-12.0); Neutrophils % (auto) 80.9 % (37.0-80.0); Platelet Count (auto) 274 10^3/uL (140-450); Red Cell Distribution Width 16.8 % (11.6-16.0); White Blood Cell 13.6 10^3/uL (4.4-10.8)
[2016-09-16 07:01] LABS: Partial Thromboplastin Time 43.3 sec (22.64-33.71)
[2016-09-16 07:04] LABS: Calcium 7.8 mg/dL (8.5-10.1); INR 5.05 (0.9-1.15); Potassium 3.7 mmol/L (3.5-5.1)
[2016-09-16 07:06] LABS: BUN/Creatinine Ratio 31.1
[2016-09-16] MEDS: BOOST 8 ounces PO SCH ×2 (08:52→18:00)
[2016-09-16] MEDS: POTASSIUM CHL 10 Meq TABLET PO SCH (08:52)
[2016-09-16] MEDS: FLUCONAZOLE 200MG/100ML 100 ML IV SCH (08:52)
[2016-09-16] MEDS: cefTRIAXone 1GM/50ML D5W 50 ML IV SCH (08:52)
[2016-09-16] MEDS: ATENOLOL 25 MG TAB PO SCH ×2 (08:53→22:20)
[2016-09-16] MEDS: FUROSEMIDE 40 MG TAB PO SCH (08:53)
[2016-09-16] MEDS: FAMOTIDINE 20 MG TAB PO SCH (08:53)
[2016-09-16 10:10] VITALS: BP 136/75
[2016-09-16] MEDS: ALBUMIN 25% 100 ML IV SCH ×2 (14:29→22:19)
[2016-09-16 15:14] VITALS: BP 122/79
[2016-09-16] MEDS: HYDROmorphone HCL 2 MG/ML VL IV PRN (15:41)
[2016-09-16 17:05] VITALS: BP 135/61
[2016-09-16 22:00] VITALS: BP 148/82
[2016-09-17 05:00] VITALS: BP 144/73
[2016-09-17] MEDS: ALBUMIN 25% 100 ML IV SCH (06:14)
[2016-09-17] MEDS: metroNIDAZOLE 500 MG TAB PO SCH ×3 (06:14→22:06)
[2016-09-17 06:48] LABS: Partial Thromboplastin Time 47.2 sec (22.64-33.71)
[2016-09-17 06:49] LABS: Prothrombin Time 50.7 sec (9.37-12.3)
[2016-09-17 06:55] LABS: INR 4.58 (0.9-1.15)
[2016-09-17] MEDS: BOOST 8 ounces PO SCH ×2 (08:00→18:19)
[2016-09-17 09:09] VITALS: BP 159/82
[2016-09-17] MEDS: cefTRIAXone 1GM/50ML D5W 50 ML IV SCH (09:13)
[2016-09-17] MEDS: FAMOTIDINE 20 MG TAB PO SCH (10:23)
[2016-09-17] MEDS: POTASSIUM CHL 10 Meq TABLET PO SCH (10:23)
[2016-09-17] MEDS: FLUCONAZOLE 200MG/100ML 100 ML IV SCH (10:23)
[2016-09-17] MEDS: FUROSEMIDE 40 MG TAB PO SCH (10:24)
[2016-09-17] MEDS: ATENOLOL 25 MG TAB PO SCH ×2 (10:24→22:06)
[2016-09-17] MEDS ORDERED: ONDANSETRON HCL 4 MG/2 ML VIAL IV PRN (11:15)
[2016-09-17 12:33] VITALS: BP 161/98
[2016-09-17] MEDS: FEXOFENADINE HCL 60 MG TAB PO SCH ×2 (12:53→22:05)
[2016-09-17] MEDS: hydrALAZINE HCL 20 MG/ML VL IV PRN (13:50)
[2016-09-17] MEDS: HYDROcodone-ACET 5/325MG TAB PO PRN ×2 (16:18→23:17)
[2016-09-17 22:00] VITALS: BP 158/83
[2016-09-18] MEDS: hydrALAZINE HCL 20 MG/ML VL IV PRN (05:22)
[2016-09-18] MEDS: metroNIDAZOLE 500 MG TAB PO SCH (05:23)
[2016-09-18 06:27] VITALS: BP 159/80
[2016-09-18 06:50] LABS: Basophils # (auto) 0.1 uL; Basophils % (auto) 0.4 % (0.0-2.0); CONDITION Y; Eosinophils # (auto) 0.1 uL; Eosinophils % (auto) 1.1 % (0.0-7.0); Hematocrit 28.9 % (36.0-46.0); Lymphocytes # (auto) 1.4 uL; Lymphocytes % (auto) 11.3 % (10.0-50.0); Mean Corpuscular Hemoglobin 32.1 pg (28.0-32.0); Mean Corpuscular Hgb Conc. 34.6 g/dL (32.0-36.0); Mean Corpuscular Volume 92.8 fL (80.0-100.0); Monocytes # (auto) 1.1 uL; Monocytes % (auto) 8.6 % (0.0-12.0); Neutrophils % (auto) 78.6 % (37.0-80.0); Platelet Count (auto) 312 10^3/uL (140-450); Red Cell Distribution Width 16.3 % (11.6-16.0); White Blood Cell 12.7 10^3/uL (4.4-10.8)
[2016-09-18 07:01] LABS: INR 3.06 (0.9-1.15); Partial Thromboplastin Time 37.4 sec (22.64-33.71)
[2016-09-18 07:06] LABS: BUN/Creatinine Ratio 25.8; Calcium 8.3 mg/dL (8.5-10.1); Potassium 3.4 mmol/L (3.5-5.1)
[2016-09-18 07:08] LABS: Prothrombin Time 33.7 sec (9.37-12.3)
[2016-09-18 08:00] VITALS: BP 132/84
[2016-09-18] MEDS ORDERED: FUROSEMIDE 40 MG/4 ML VIAL IV ONE (10:15)
[2016-09-18] MEDS: FEXOFENADINE HCL 60 MG TAB PO SCH ×2 (10:47→21:23)
[2016-09-18] MEDS: FAMOTIDINE 20 MG TAB PO SCH (10:47)
[2016-09-18] MEDS: POTASSIUM CHL 10 Meq TABLET PO SCH (10:47)
[2016-09-18] MEDS: BOOST 8 ounces PO SCH ×2 (10:48→18:10)
[2016-09-18] MEDS: ATENOLOL 25 MG TAB PO SCH ×2 (10:48→21:22)
[2016-09-18 12:30] VITALS: BP 156/87
[2016-09-18] MEDS: HYDROcodone-ACET 5/325MG TAB PO PRN ×2 (16:30→21:23)
[2016-09-18 17:30] VITALS: BP 149/90
[2016-09-18 22:00] VITALS: BP 161/88
[2016-09-19 06:07] VITALS: BP 146/80
[2016-09-19 06:30] LABS: Basophils # (auto) 0 uL; Basophils % (auto) 0.3 % (0.0-2.0); CONDITION Y; Eosinophils # (auto) 0.2 uL; Eosinophils % (auto) 1.4 % (0.0-7.0); Hemoglobin 10.2 g/dL (12.2-16.2); Lymphocytes # (auto) 1.3 uL; Mean Corpuscular Hemoglobin 31.8 pg (28.0-32.0); Mean Corpuscular Hgb Conc. 33.9 g/dL (32.0-36.0); Mean Corpuscular Volume 93.8 fL (80.0-100.0); Mean Platelet Volume 8.7 fL (7.4-10.4); Monocytes # (auto) 1.1 uL; Neutrophils # (auto) 9.9 uL; Neutrophils % (auto) 79.3 % (37.0-80.0); Platelet Count (auto) 345 10^3/uL (140-450); White Blood Cell 12.5 10^3/uL (4.4-10.8)
[2016-09-19 06:49] LABS: INR 2.36 (0.9-1.15); Partial Thromboplastin Time 34.7 sec (22.64-33.71)
[2016-09-19 06:52] LABS: Albumin 3.1 g/dL (3.4-5.0); Calcium 8.3 mg/dL (8.5-10.1); Potassium 3.5 mmol/L (3.5-5.1)
[2016-09-19 06:55] LABS: BUN/Creatinine Ratio 26.4
[2016-09-19 07:06] LABS: Bilirubin, Total 0.6 mg/dL (0.2-1.0); Total Protein 6.1 g/dL (6.4-8.2)
[2016-09-19] MEDS: BOOST 8 ounces PO SCH (08:00)
[2016-09-19 09:00] VITALS: BP 155/97
[2016-09-19] MEDS: FUROSEMIDE 40 MG/4 ML VIAL IV SCH (11:00)
[2016-09-19] MEDS: FAMOTIDINE 20 MG TAB PO SCH (11:00)
[2016-09-19] MEDS: FEXOFENADINE HCL 60 MG TAB PO SCH ×2 (11:00→21:12)
[2016-09-19] MEDS: POTASSIUM CHL 10 Meq TABLET PO SCH (11:00)
[2016-09-19] MEDS: ATENOLOL 25 MG TAB PO SCH ×2 (11:01→21:13)
[2016-09-19 13:00] VITALS: BP 151/98
[2016-09-19] MEDS ORDERED: POTASSIUM CHL 10 Meq TABLET PO ONE (14:30)
[2016-09-19 17:00] VITALS: BP 156/97
[2016-09-19] MEDS ORDERED: WARFARIN SODIUM 2 MG TAB PO ONE (17:00)
[2016-09-19] MEDS: BOOST PLUS 8 ounce PO SCH (17:57)
[2016-09-19] MEDS: HYDROcodone-ACET 5/325MG TAB PO PRN (21:13)
[2016-09-19 21:30] VITALS: BP 156/118
[2016-09-20 05:00] VITALS: BP 160/96
[2016-09-20 05:23] LABS: Basophils # (auto) 0.1 uL; Basophils % (auto) 0.6 % (0.0-2.0); CONDITION Y; Eosinophils # (auto) 0.2 uL; Hematocrit 28.6 % (36.0-46.0); Hemoglobin 9.8 g/dL (12.2-16.2); Lymphocytes # (auto) 1.6 uL; Lymphocytes % (auto) 15.9 % (10.0-50.0); Mean Corpuscular Hgb Conc. 34.1 g/dL (32.0-36.0); Mean Platelet Volume 8.7 fL (7.4-10.4); Monocytes # (auto) 0.9 uL; Monocytes % (auto) 9.4 % (0.0-12.0); Neutrophils # (auto) 7.3 uL; Neutrophils % (auto) 72.1 % (37.0-80.0); Platelet Count (auto) 340 10^3/uL (140-450); Red Cell Distribution Width 17.5 % (11.6-16.0); White Blood Cell 10.1 10^3/uL (4.4-10.8)
[2016-09-20 05:39] LABS: INR 2.65 (0.9-1.15); Partial Thromboplastin Time 34.3 sec (22.64-33.71)
[2016-09-20 05:40] LABS: Prothrombin Time 29.2 sec (9.37-12.3)
[2016-09-20 05:42] LABS: Calcium 7.9 mg/dL (8.5-10.1); Potassium 3.3 mmol/L (3.5-5.1)
[2016-09-20 05:44] LABS: BUN/Creatinine Ratio 23.7
[2016-09-20 09:00] VITALS: BP 159/90
[2016-09-20] MEDS: FUROSEMIDE 40 MG/4 ML VIAL IV SCH ×2 (10:00→14:37)
[2016-09-20] MEDS: FAMOTIDINE 20 MG TAB PO SCH (10:00)
[2016-09-20] MEDS: FEXOFENADINE HCL 60 MG TAB PO SCH ×2 (10:42→22:16)
[2016-09-20] MEDS: ATENOLOL 25 MG TAB PO SCH ×2 (10:42→22:16)
[2016-09-20] MEDS: POTASSIUM CHL 10 Meq TABLET PO SCH (10:42)
[2016-09-20] MEDS: BOOST PLUS 8 ounce PO SCH ×2 (10:43→18:01)
[2016-09-20 13:00] VITALS: BP 158/105
[2016-09-20] MEDS ORDERED: HYDROmorphone HCL 2 MG/ML VL IV PRN (13:15)
[2016-09-20] MEDS ORDERED: POTASSIUM CHL 20 Meq TABLET PO ONE (13:15)
[2016-09-20 16:38] VITALS: BP 147/99
[2016-09-20] MEDS ORDERED: WARFARIN SODIUM 1 MG TAB PO ONE (17:00)
[2016-09-20] MEDS: HYDROcodone-ACET 5/325MG TAB PO PRN (17:01)
[2016-09-20 22:00] VITALS: BP 159/74
[2016-09-21 06:11] LABS: Calcium 8.4 mg/dL (8.5-10.1); Potassium 3.6 mmol/L (3.5-5.1)
[2016-09-21 06:53] LABS: INR 3.04 (0.9-1.15); Partial Thromboplastin Time 35.3 sec (22.64-33.71)
[2016-09-21 07:16] LABS: Prothrombin Time 33.5 sec (9.37-12.3)
[2016-09-21] MEDS: BOOST PLUS 8 ounce PO SCH ×2 (08:00→17:20)
[2016-09-21 09:00] VITALS: BP 155/97
[2016-09-21] MEDS: POTASSIUM CHL 10 Meq TABLET PO SCH (10:00)
[2016-09-21] MEDS: FEXOFENADINE HCL 60 MG TAB PO SCH ×2 (10:00→21:03)
[2016-09-21] MEDS: FAMOTIDINE 20 MG TAB PO SCH (10:00)
[2016-09-21] MEDS: ATENOLOL 25 MG TAB PO SCH ×2 (10:01→21:04)
[2016-09-21] MEDS: FUROSEMIDE 40 MG/4 ML VIAL IV SCH (10:02)
[2016-09-21] MEDS ORDERED: FUROSEMIDE 40 MG/4 ML VIAL IV ONE (12:15)
[2016-09-21] MEDS ORDERED: POTASSIUM CHL 20 Meq TABLET PO ONE (12:15)
[2016-09-21 14:55] VITALS: BP 153/84
[2016-09-21 17:16] VITALS: BP 177/95
[2016-09-21] MEDS: hydrALAZINE HCL 20 MG/ML VL IV PRN (18:21)
[2016-09-21] MEDS: HYDROcodone-ACET 5/325MG TAB PO PRN (21:09)
[2016-09-21 22:00] VITALS: BP 158/74
[2016-09-22 05:00] VITALS: BP 161/79
[2016-09-22 05:32] LABS: INR 2.8 (0.9-1.15); Partial Thromboplastin Time 34.1 sec (22.64-33.71)
[2016-09-22 05:35] LABS: BUN/Creatinine Ratio 20.2; Calcium 8.3 mg/dL (8.5-10.1); Potassium 3.3 mmol/L (3.5-5.1)
[2016-09-22 05:37] LABS: Prothrombin Time 30.8 sec (9.37-12.3)
[2016-09-22] MEDS: hydrALAZINE HCL 20 MG/ML VL IV PRN (06:41)
[2016-09-22] MEDS: BOOST PLUS 8 ounce PO SCH ×2 (08:00→18:00)
[2016-09-22 08:59] VITALS: BP 125/45
[2016-09-22] MEDS: FUROSEMIDE 40 MG/4 ML VIAL IV SCH (09:57)
[2016-09-22] MEDS: ATENOLOL 25 MG TAB PO SCH ×2 (09:58→21:09)
[2016-09-22] MEDS: FEXOFENADINE HCL 60 MG TAB PO SCH ×2 (09:59→21:08)
[2016-09-22] MEDS: POTASSIUM CHL 10 Meq TABLET PO SCH (09:59)
[2016-09-22] MEDS: FAMOTIDINE 20 MG TAB PO SCH (09:59)
[2016-09-22] MEDS ORDERED: GASTROGRAFIN 30 ML SOL ONE (10:52)
[2016-09-22] MEDS ORDERED: POTASSIUM CHL 20 Meq TABLET PO ONE (11:00)
[2016-09-22 14:53] VITALS: BP 143/69
[2016-09-22 16:49] VITALS: BP 136/77
[2016-09-22] MEDS: HYDROcodone-ACET 5/325MG TAB PO PRN (21:12)
[2016-09-22 21:38] VITALS: BP 136/75
[2016-09-23 04:38] VITALS: BP 157/72
[2016-09-23 06:14] LABS: Basophils # (auto) 0 uL; Basophils % (auto) 0.2 % (0.0-2.0); CONDITION Y; Eosinophils # (auto) 0.2 uL; Eosinophils % (auto) 1.9 % (0.0-7.0); Hematocrit 31.6 % (36.0-46.0); Hemoglobin 10.6 g/dL (12.2-16.2); Lymphocytes # (auto) 1.5 uL; Lymphocytes % (auto) 17.2 % (10.0-50.0); Mean Corpuscular Hemoglobin 32.3 pg (28.0-32.0); Mean Corpuscular Hgb Conc. 33.7 g/dL (32.0-36.0); Mean Corpuscular Volume 95.8 fL (80.0-100.0); Mean Platelet Volume 8.8 fL (7.4-10.4); Monocytes # (auto) 0.7 uL; Monocytes % (auto) 8.1 % (0.0-12.0); Neutrophils # (auto) 6.3 uL; Neutrophils % (auto) 72.6 % (37.0-80.0); Platelet Count (auto) 336 10^3/uL (140-450); Red Cell Distribution Width 18.6 % (11.6-16.0); White Blood Cell 8.7 10^3/uL (4.4-10.8)
[2016-09-23 06:32] LABS: INR 2.22 (0.9-1.15); Partial Thromboplastin Time 31.5 sec (22.64-33.71)
[2016-09-23 06:38] LABS: Prothrombin Time 24.4 sec (9.37-12.3)
[2016-09-23] MEDS: BOOST PLUS 8 ounce PO SCH ×2 (08:00→18:00)
[2016-09-23 09:00] VITALS: BP 152/84
[2016-09-23] MEDS: FUROSEMIDE 40 MG/4 ML VIAL IV SCH (09:13)
[2016-09-23] MEDS: FAMOTIDINE 20 MG TAB PO SCH (09:14)
[2016-09-23] MEDS: FEXOFENADINE HCL 60 MG TAB PO SCH ×2 (09:14→23:02)
[2016-09-23] MEDS: ATENOLOL 25 MG TAB PO SCH ×2 (09:14→23:03)
[2016-09-23] MEDS: POTASSIUM CHL 10 Meq TABLET PO SCH (09:14)
[2016-09-23] MEDS ORDERED: hydrALAZINE HCL 20 MG/ML VL IV PRN (11:15)
[2016-09-23 13:00] VITALS: BP 144/83
[2016-09-23 17:00] VITALS: BP 157/96
[2016-09-23] MEDS ORDERED: WARFARIN SODIUM 1 MG TAB PO ONE (17:00)
[2016-09-23 22:04] VITALS: BP 136/67
[2016-09-23] MEDS: HYDROcodone-ACET 5/325MG TAB PO PRN (23:03)
[2016-09-24 04:52] VITALS: BP 144/74
[2016-09-24 06:23] LABS: Basophils # (auto) 0 uL; Basophils % (auto) 0.4 % (0.0-2.0); CONDITION Y; Eosinophils # (auto) 0.2 uL; Eosinophils % (auto) 2.5 % (0.0-7.0); Hematocrit 29.5 % (36.0-46.0); Hemoglobin 9.9 g/dL (12.2-16.2); Lymphocytes # (auto) 1.3 uL; Lymphocytes % (auto) 16.6 % (10.0-50.0); Mean Corpuscular Hemoglobin 32.1 pg (28.0-32.0); Mean Corpuscular Hgb Conc. 33.6 g/dL (32.0-36.0); Mean Corpuscular Volume 95.4 fL (80.0-100.0); Mean Platelet Volume 8.6 fL (7.4-10.4); Monocytes # (auto) 0.6 uL; Monocytes % (auto) 8.1 % (0.0-12.0); Neutrophils # (auto) 5.6 uL; Neutrophils % (auto) 72.4 % (37.0-80.0); Platelet Count (auto) 293 10^3/uL (140-450); Red Cell Distribution Width 18.7 % (11.6-16.0); SUSPECT SEE PRINTOUT; White Blood Cell 7.8 10^3/uL (4.4-10.8)
[2016-09-24 06:35] LABS: INR 2.34 (0.9-1.15); Partial Thromboplastin Time 30.9 sec (22.64-33.71)
[2016-09-24 06:36] LABS: Prothrombin Time 25.7 sec (9.37-12.3)
[2016-09-24 07:07] LABS: Albumin 2.5 g/dL (3.4-5.0); BUN/Creatinine Ratio 16.8; Bilirubin, Total 0.4 mg/dL (0.2-1.0); Magnesium 1.9 mg/dL (1.6-2.6); Potassium 3.4 mmol/L (3.5-5.1); Total Protein 5.2 g/dL (6.4-8.2)
[2016-09-24] MEDS: BOOST PLUS 8 ounce PO SCH ×2 (08:00→18:13)
[2016-09-24 09:00] VITALS: BP 120/75
[2016-09-24] MEDS: FEXOFENADINE HCL 60 MG TAB PO SCH ×2 (10:13→21:22)
[2016-09-24] MEDS: FAMOTIDINE 20 MG TAB PO SCH (10:13)
[2016-09-24] MEDS: FUROSEMIDE 40 MG/4 ML VIAL IV SCH (10:13)
[2016-09-24] MEDS: POTASSIUM CHL 10 Meq TABLET PO SCH (10:13)
[2016-09-24] MEDS: ATENOLOL 25 MG TAB PO SCH ×2 (10:13→21:23)
[2016-09-24 13:00] VITALS: BP 141/87
[2016-09-24 17:00] VITALS: BP_SYST 149; BP_SYST 152; BP_DIAS 64; BP_DIAS 72
[2016-09-24] MEDS ORDERED: WARFARIN SODIUM 2 MG TAB PO ONE (17:00)
[2016-09-24] MEDS: HYDROcodone-ACET 5/325MG TAB PO PRN (21:23)
[2016-09-24 22:00] VITALS: BP 150/80
[2016-09-25 05:19] VITALS: BP 153/95
[2016-09-25 06:32] LABS: Basophils # (auto) 0 uL; Basophils % (auto) 0.4 % (0.0-2.0); CONDITION Y; DEFINITIVE SEE PRINTOUT; Eosinophils # (auto) 0.2 uL; Eosinophils % (auto) 3.3 % (0.0-7.0); Hematocrit 32.1 % (36.0-46.0); Hemoglobin 10.8 g/dL (12.2-16.2); Lymphocytes # (auto) 1.5 uL; Lymphocytes % (auto) 23.4 % (10.0-50.0); Mean Corpuscular Hemoglobin 32.1 pg (28.0-32.0); Mean Corpuscular Hgb Conc. 33.7 g/dL (32.0-36.0); Mean Corpuscular Volume 95.2 fL (80.0-100.0); Mean Platelet Volume 8.7 fL (7.4-10.4); Monocytes # (auto) 0.6 uL; Monocytes % (auto) 9.8 % (0.0-12.0); Neutrophils # (auto) 4.1 uL; Neutrophils % (auto) 63.1 % (37.0-80.0); Platelet Count (auto) 313 10^3/uL (140-450); Red Cell Distribution Width 19.1 % (11.6-16.0); White Blood Cell 6.5 10^3/uL (4.4-10.8)
[2016-09-25 06:42] LABS: INR 1.98 (0.9-1.15); Partial Thromboplastin Time 29.4 sec (22.64-33.71)
[2016-09-25 06:51] LABS: Albumin 2.7 g/dL (3.4-5.0); BUN/Creatinine Ratio 14.2; Bilirubin, Total 0.5 mg/dL (0.2-1.0); Calcium 8.5 mg/dL (8.5-10.1); Potassium 3.3 mmol/L (3.5-5.1); Total Protein 5.9 g/dL (6.4-8.2)
[2016-09-25 06:57] LABS: Prothrombin Time 21.7 sec (9.37-12.3)
[2016-09-25] MEDS: BOOST PLUS 8 ounce PO SCH (08:00)
[2016-09-25 08:21] VITALS: BP 161/89
[2016-09-25] MEDS: FUROSEMIDE 40 MG/4 ML VIAL IV SCH (09:22)
[2016-09-25] MEDS: FEXOFENADINE HCL 60 MG TAB PO SCH (09:23)
[2016-09-25] MEDS: POTASSIUM CHL 10 Meq TABLET PO SCH (09:23)
[2016-09-25] MEDS: FAMOTIDINE 20 MG TAB PO SCH (09:23)
[2016-09-25] MEDS: ATENOLOL 25 MG TAB PO SCH (09:24)
[2016-09-25 11:22] VITALS: BP 161/89
[2016-09-25 12:17] VITALS: BP 160/94
[2016-09-25] MEDS ORDERED: WARFARIN SODIUM 2 MG TAB PO ONE (17:00)
== END 2016-09-25 12:28 | disposition home or self-care (01) | DRG 853 ==
LOC: ER 11:03 → TELE 11:04 → TELE-CENTR 18:24 → ICU WEST 09-06 17:11 → DOU IN ICU 09-10 18:45 → TELE-EAST 09-14 19:58 → EAST 09-16 12:51
PROVIDERS: ADMIT Internal Medicine; ATTEND Internal Medicine
PROC: 30233L1 Transfusion of Nonautologous Fresh Plasma into Peripheral Vein, Percutaneous Approach (ICD-10-PCS; 2016-09-04)
PROC: 30233N1 Transfusion of Nonautologous Red Blood Cells into Peripheral Vein, Percutaneous Approach (ICD-10-PCS; 2016-09-04)
PROC: 30233K1 Transfusion of Nonautologous Frozen Plasma into Peripheral Vein, Percutaneous Approach (ICD-10-PCS; 2016-09-04)
PROC: 5A1945Z Respiratory Ventilation, 24-96 Consecutive Hours (ICD-10-PCS; 2016-09-04)
PROC: 0BH17EZ Insertion of Endotracheal Airway into Trachea, Via Natural or Artificial Opening (ICD-10-PCS; 2016-09-04)
PROC: 0DN80ZZ Release Small Intestine, Open Approach (ICD-10-PCS; 2016-09-06)
PROC: 0DB80ZZ Excision of Small Intestine, Open Approach (ICD-10-PCS; principal; 2016-09-06 12:09)
DX: A41.9 Sepsis, unspecified organism (principal); I50.33 Acute on chronic diastolic (congestive) heart failure; J96.00 Acute respiratory failure, unspecified whether with hypoxia or hypercapnia; B59 Pneumocystosis; K56.60 Unspecified intestinal obstruction; D68.9 Coagulation defect, unspecified; E87.0 Hyperosmolality and hypernatremia; N17.9 Acute kidney failure, unspecified; N13.30 Unspecified hydronephrosis; I48.91 Unspecified atrial fibrillation; E78.5 Hyperlipidemia, unspecified; K57.90 Diverticulosis of intestine, part unspecified, without perforation or abscess without bleeding; Z88.2 Allergy status to sulfonamides; Z82.3 Family history of stroke; Z90.710 Acquired absence of both cervix and uterus; Z90.49 Acquired absence of other specified parts of digestive tract; Z90.89 Acquired absence of other organs; D69.6 Thrombocytopenia, unspecified; I11.0 Hypertensive heart disease with heart failure; Z82.49 Family history of ischemic heart disease and other diseases of the circulatory system; Z95.0 Presence of cardiac pacemaker; K66.0 Peritoneal adhesions (postprocedural) (postinfection); Z71.89 Other specified counseling
CPT/HCPCS: 36415; 36600; 51702; 71010; 74000; 74176; 76775; 80048; 80053; 80162; 80202; 81001; 82040; 82805; 82962; 83036; 83735; 83880; 84100; 84478; 84484; 85007; 85025; 85027; 85610; 85730; 86850; 86900; 86901; 86920; 87040; 87070; 87077; 87081; 87186; 88307; 93005; 93306; 94002; 94003; 96361; 96365; 96366; 96368; 96375; 97110; 97116; 97163; 97530; A4565; C9113; J0690; J0696; J1100; J1450; J1815; J1885; J2001; J2250; J2405; J2543; J3430; J3490

== ENCOUNTER 2018-12-25 14:10 | Emergency (ER) | payer OTHER ==
[~2018-12-25] VITALS: Ht 157.5 cm; Wt 64.4 kg
[~2018-12-25 14:10] MED LIST changes: +AMLO2.5T7 PO; +RANI300C7 PO
[2018-12-25 14:31] VITALS: BP 166/100
[2018-12-25 14:47] LABS: Basophils # (auto) 0 uL; Basophils % (auto) 0.5 % (0.0-2.0); Eosinophils # (auto) 0.2 uL; Eosinophils % (auto) 2.1 % (0.0-7.0); Hematocrit 39.3 % (36.0-46.0); Hemoglobin 13.3 g/dL (12.2-16.2); Lymphocytes # (auto) 0.8 uL; Lymphocytes % (auto) 9.5 % (10.0-50.0); Mean Corpuscular Hemoglobin 33.4 pg (28.0-32.0); Mean Corpuscular Hgb Conc. 33.8 g/dL (32.0-36.0); Mean Corpuscular Volume 98.9 fL (80.0-100.0); Monocytes # (auto) 0.4 uL; Neutrophils # (auto) 6.9 uL; Neutrophils % (auto) 82.9 % (37.0-80.0); Platelet Count (auto) 166 10^3/uL (140-450); Red Blood Cells 3.98 10^6/uL (4.0-5.20); Red Cell Distribution Width 14.6 % (11.8-14.3); White Blood Cell 8.3 10^3/uL (4.4-10.8)
[2018-12-25 15:08] LABS: Albumin 3.8 g/dL (3.4-5.0); Calcium 9.3 mg/dL (8.5-10.1); Potassium 3.8 mmol/L (3.5-5.1)
[2018-12-25 15:10] LABS: BUN/Creatinine Ratio 14.7
[2018-12-25] MEDS ORDERED: MAGNESIUM CITRATE SOLUTION 300 ML BTL PO ONE (17:30)
== END 2018-12-25 18:46 | disposition home or self-care (01) ==
LOC: MERGE 14:21 → ER 14:21
DX: K57.30 Diverticulosis of large intestine without perforation or abscess without bleeding (principal); K59.00 Constipation, unspecified; I48.91 Unspecified atrial fibrillation; I10 Essential (primary) hypertension; G62.9 Polyneuropathy, unspecified; Z88.2 Allergy status to sulfonamides; Z95.0 Presence of cardiac pacemaker
CPT/HCPCS: 36415; 74176; 80053; 85025; 93005

== ENCOUNTER → 2019-06-11 | Outpatient (CLI) | payer OTHER ==
[2019-06-11 11:08] LABS: Basophils # (auto) 0 10 ^3/uL (0-0.2); Basophils % (auto) 0.7 % (0.0-2.0); Eosinophils # (auto) 0.3 10 ^3/uL (0-0.8); Eosinophils % (auto) 5.5 % (0.0-7.0); Hematocrit 42.7 % (36.0-46.0); Hemoglobin 14.1 g/dL (12.2-16.2); Lymphocytes # (auto) 1.1 10 ^3/uL (0.4-5.4); Lymphocytes % (auto) 22.8 % (10.0-50.0); Mean Corpuscular Hemoglobin 32.7 pg (28.0-32.0); Mean Corpuscular Hgb Conc. 33.2 g/dL (32.0-36.0); Mean Corpuscular Volume 98.7 fL (80.0-100.0); Monocytes # (auto) 0.4 10 ^3/uL (0-1.3); Monocytes % (auto) 8.2 % (0.0-12.0); Neutrophils % (auto) 62.8 % (37.0-80.0); Nucleated Red Blood Cells % 0.1 %; Platelet Count (auto) 185 10^3/uL (140-450); Red Blood Cells 4.32 10^6/uL (4.0-5.20); Red Cell Distribution Width 15.1 % (11.8-14.3); White Blood Cell 4.8 10^3/uL (4.4-10.8)
[2019-06-11 11:34] LABS: Calcium 9.3 mg/dL (8.5-10.1); Potassium 3.6 mmol/L (3.5-5.1)
[2019-06-11 11:42] LABS: Albumin 3.8 g/dL (3.4-5.0); BUN/Creatinine Ratio 10.8; Bilirubin, Total 0.7 mg/dL (0.2-1.0); Magnesium 2.2 mg/dL (1.6-2.6); Total Protein 7.9 g/dL (6.4-8.2)
[2019-06-12 11:40] LABS: Urine Bacteria NONE SEEN /hpf (None Seen); Urine Blood Negative /uL (Negative); Urine Specific Gravity 1.012 (1.001-1.035); Urine WBC 31 /hpf (0 - 5)
== END | disposition home or self-care (01) ==
LOC: LAB 10:33
PROVIDERS: ATTEND Internal Medicine
DX: I10 Essential (primary) hypertension (principal); I48.20 Chronic atrial fibrillation, unspecified; Z79.899 Other long term (current) drug therapy
CPT/HCPCS: 36415; 80053; 80061; 81001; 83735; 84439; 84443; 85025; 85652

== ENCOUNTER → 2019-10-09 | Outpatient (CLI) | payer OTHER ==
[~2019-10-09] MED LIST changes: +AMLO-483 PO; -AMLO2.5T7 PO; +AMLO5TAB15 PO; +GABA100C9 PO; +LOSA-39 PO; +METO-169 PO; +OMEP20TA PO; +POTA10TA32 PO
== END | disposition home or self-care (01) ==
LOC: CARD 09:48
PROVIDERS: ATTEND Internal Medicine
DX: I08.1 Rheumatic disorders of both mitral and tricuspid valves (principal); I48.91 Unspecified atrial fibrillation
CPT/HCPCS: 93306

== ENCOUNTER 2019-10-15 07:06 | Day surgery (SDC) | payer OTHER ==
[2019-10-13 11:58] LABS: Basophils # (auto) 0 10 ^3/uL (0-0.2); Basophils % (auto) 0.7 % (0.0-2.0); Eosinophils # (auto) 0.4 10 ^3/uL (0-0.8); Eosinophils % (auto) 6.5 % (0.0-7.0); Hematocrit 38.2 % (36.0-46.0); Lymphocytes # (auto) 1.1 10 ^3/uL (0.4-5.4); Lymphocytes % (auto) 19.9 % (10.0-50.0); Mean Corpuscular Volume 99.8 fL (80.0-100.0); Monocytes # (auto) 0.4 10 ^3/uL (0-1.3); Monocytes % (auto) 6.8 % (0.0-12.0); Neutrophils # (auto) 3.7 10 ^3/uL (1.6-8.6); Neutrophils % (auto) 66.1 % (37.0-80.0); Platelet Count (auto) 193 10^3/uL (140-450); Red Blood Cells 3.83 10^6/uL (4.0-5.20); Red Cell Distribution Width 13.9 % (11.8-14.3); White Blood Cell 5.6 10^3/uL (4.4-10.8)
[2019-10-13 12:16] LABS: Albumin 3.7 g/dL (3.4-5.0); Calcium 9.3 mg/dL (8.5-10.1); Potassium 3.5 mmol/L (3.5-5.1)
[2019-10-13 12:19] LABS: INR 1.15 (0.9-1.15); Partial Thromboplastin Time 25.9 sec (23.64-32.05)
[2019-10-13 12:22] LABS: BUN/Creatinine Ratio 11.7; Bilirubin, Total 0.7 mg/dL (0.2-1.0); Total Protein 7.7 g/dL (6.4-8.2)
[~2019-10-15] VITALS: Ht 157.5 cm; Wt 68.0 kg
[~2019-10-15 07:06] MED LIST changes: -AMLO-483 PO; -ATEN-60; -DIGO0.1262; -LISI-275; -OME20GT; -POTA10CA29; -RANI300C7 PO
[2019-10-15] MEDS ORDERED: VANCOMYCIN 1GM/250ML 250 ML IV ONE ×2 (08:15→08:38)
[2019-10-15] MEDS ORDERED: MIDAZOLAM HCL 1MG/1ML-2 ML VIAL ONE (08:37)
[2019-10-15] MEDS ORDERED: VANCOMYCIN HCL 1000 MG VL ONE (08:37)
[2019-10-15] MEDS ORDERED: fentaNYL CITRATE 100 MCG/2 ML VL ONE (08:37)
[2019-10-15] MEDS ORDERED: ATROPINE SULF 1 MG/10ml SYR ONE (08:37)
[2019-10-15] MEDS ORDERED: LIDOCAINE 2%HCL (LOCAL ANESTH.) INJ 20ML MDV ONE (08:38)
[2019-10-15] MEDS ORDERED: HYDROcodone-ACET 5/325MG TAB PO PRN (12:15)
== END 2019-10-15 13:33 | disposition home or self-care (01) ==
LOC: CATH 07:06
PROVIDERS: ATTEND Internal Medicine
DX: Z45.02 Encounter for adjustment and management of automatic implantable cardiac defibrillator (principal); I10 Essential (primary) hypertension; E78.5 Hyperlipidemia, unspecified; Z79.899 Other long term (current) drug therapy; Z88.2 Allergy status to sulfonamides; Z98.890 Other specified postprocedural states; Z11.59 Encounter for screening for other viral diseases
CPT/HCPCS: 33227; 36415; 80053; 85025; 85610; 85730; C1786; J2250; J3010; J3370; J7030; U0003; 99152; 99153

== ENCOUNTER → 2019-11-07 | Outpatient (CLI) | payer OTHER ==
[2019-11-07 13:21] LABS: Basophils # (auto) 0.1 10 ^3/uL (0-0.2); Basophils % (auto) 0.6 % (0.0-2.0); Eosinophils # (auto) 0.2 10 ^3/uL (0-0.8); Eosinophils % (auto) 3.1 % (0.0-7.0); Hematocrit 40.2 % (36.0-46.0); Hemoglobin 13.3 g/dL (12.2-16.2); Lymphocytes # (auto) 1.3 10 ^3/uL (0.4-5.4); Lymphocytes % (auto) 17.1 % (10.0-50.0); Mean Corpuscular Hemoglobin 32.9 pg (28.0-32.0); Mean Corpuscular Volume 99.9 fL (80.0-100.0); Monocytes # (auto) 0.4 10 ^3/uL (0-1.3); Monocytes % (auto) 5.6 % (0.0-12.0); Neutrophils # (auto) 5.7 10 ^3/uL (1.6-8.6); Neutrophils % (auto) 73.6 % (37.0-80.0); Platelet Count (auto) 308 10^3/uL (140-450); Red Blood Cells 4.02 10^6/uL (4.0-5.20); Red Cell Distribution Width 13.5 % (11.8-14.3); White Blood Cell 7.8 10^3/uL (4.4-10.8)
[2019-11-07 13:35] LABS: Albumin 3.8 g/dL (3.4-5.0); Calcium 9.7 mg/dL (8.5-10.1); Potassium 3.6 mmol/L (3.5-5.1)
[2019-11-07 13:38] LABS: Bilirubin, Total 0.5 mg/dL (0.2-1.0); Total Protein 8.3 g/dL (6.4-8.2)
== END | disposition home or self-care (01) ==
LOC: LAB 12:52
PROVIDERS: ATTEND Internal Medicine
DX: I10 Essential (primary) hypertension (principal); N39.0 Urinary tract infection, site not specified; F50.9 Eating disorder, unspecified; N17.9 Acute kidney failure, unspecified
CPT/HCPCS: 36415; 80053; 85025; 87040; 87086; 87088; 87186

== ENCOUNTER → 2019-11-17 | Outpatient (CLI) | payer OTHER ==
[2019-11-17 11:10] LABS: Potassium 3.8 mmol/L (3.5-5.1)
[2019-11-17 11:35] LABS: BUN/Creatinine Ratio 13.7; Calcium 9.5 mg/dL (8.5-10.1)
[2019-11-17 11:51] LABS: INR 1.93 (0.9-1.15)
== END | disposition home or self-care (01) ==
LOC: LAB 09:45
PROVIDERS: ATTEND Internal Medicine
DX: I12.9 Hypertensive chronic kidney disease with stage 1 through stage 4 chronic kidney disease, or unspecified chronic kidney disease (principal); N18.3 Chronic kidney disease, stage 3 (moderate); I48.91 Unspecified atrial fibrillation
CPT/HCPCS: 36415; 80048; 85610

== ENCOUNTER → 2019-11-25 | Outpatient (CLI) | payer OTHER ==
[2019-11-25 12:42] LABS: Urine Bacteria FEW /hpf (None Seen); Urine Blood Negative /uL (Negative); Urine Specific Gravity 1.008 (1.001-1.035); Urine WBC 1 /hpf (0 - 5)
== END | disposition home or self-care (01) ==
LOC: LAB 12:20
PROVIDERS: ATTEND Internal Medicine
DX: I12.9 Hypertensive chronic kidney disease with stage 1 through stage 4 chronic kidney disease, or unspecified chronic kidney disease (principal); N18.3 Chronic kidney disease, stage 3 (moderate); I48.91 Unspecified atrial fibrillation
CPT/HCPCS: 81001

== ENCOUNTER → 2020-01-26 | Outpatient (CLI) | payer OTHER ==
[2020-01-26 11:00] LABS: Basophils # (auto) 0 10 ^3/uL (0-0.2); Basophils % (auto) 0.5 % (0.0-2.0); Eosinophils # (auto) 0.3 10 ^3/uL (0-0.8); Eosinophils % (auto) 4.8 % (0.0-7.0); Hematocrit 36.6 % (36.0-46.0); Hemoglobin 12.1 g/dL (12.2-16.2); Lymphocytes % (auto) 18.5 % (10.0-50.0); Mean Corpuscular Hemoglobin 33.4 pg (28.0-32.0); Mean Corpuscular Hgb Conc. 33.1 g/dL (32.0-36.0); Monocytes # (auto) 0.4 10 ^3/uL (0-1.3); Monocytes % (auto) 8.1 % (0.0-12.0); Neutrophils # (auto) 3.6 10 ^3/uL (1.6-8.6); Neutrophils % (auto) 68.1 % (37.0-80.0); Nucleated Red Blood Cells % 0.1 %; Platelet Count (auto) 217 10^3/uL (140-450); Red Blood Cells 3.62 10^6/uL (4.0-5.20); Red Cell Distribution Width 14.5 % (11.8-14.3); White Blood Cell 5.2 10^3/uL (4.4-10.8)
[2020-01-26 11:47] LABS: Potassium 3.3 mmol/L (3.5-5.1)
[2020-01-26 12:01] LABS: Albumin 3.7 g/dL (3.4-5.0); BUN/Creatinine Ratio 14.6; Bilirubin, Total 0.6 mg/dL (0.2-1.0); Calcium 9.4 mg/dL (8.5-10.1); Total Protein 7.8 g/dL (6.4-8.2)
== END | disposition home or self-care (01) ==
LOC: LAB 10:18
PROVIDERS: ATTEND Internal Medicine
DX: I12.9 Hypertensive chronic kidney disease with stage 1 through stage 4 chronic kidney disease, or unspecified chronic kidney disease (principal); N18.30 Chronic kidney disease, stage 3 unspecified
CPT/HCPCS: 36415; 80053; 85025

== ENCOUNTER → 2020-08-23 | Outpatient (CLI) | payer OTHER ==
[~2020-08-23] MED LIST changes: +AMLO-489 PO; -AMLO5TAB15 PO; -METO-169 PO; +METO-289 PO
[2020-08-23 10:02] LABS: Basophils # (auto) 0 10 ^3/uL (0-0.2); Basophils % (auto) 0.6 % (0.0-2.0); Eosinophils # (auto) 0.3 10 ^3/uL (0-0.8); Eosinophils % (auto) 5.4 % (0.0-7.0); Hematocrit 39.4 % (36.0-46.0); Hemoglobin 13.2 g/dL (12.2-16.2); Lymphocytes # (auto) 1.2 10 ^3/uL (0.4-5.4); Lymphocytes % (auto) 23.9 % (10.0-50.0); Mean Corpuscular Hemoglobin 33.2 pg (28.0-32.0); Mean Corpuscular Hgb Conc. 33.6 g/dL (32.0-36.0); Mean Corpuscular Volume 98.8 fL (80.0-100.0); Monocytes # (auto) 0.4 10 ^3/uL (0-1.3); Monocytes % (auto) 8.5 % (0.0-12.0); Neutrophils % (auto) 61.6 % (37.0-80.0); Platelet Count (auto) 177 10^3/uL (140-450); Red Blood Cells 3.99 10^6/uL (4.0-5.20); Red Cell Distribution Width 14.3 % (11.8-14.3); White Blood Cell 4.9 10^3/uL (4.4-10.8)
[2020-08-23 10:23] LABS: Urine Bacteria FEW /hpf (None Seen); Urine Blood Negative /uL (Negative); Urine Specific Gravity 1.008 (1.001-1.035); Urine WBC 2 /hpf (0 - 5)
[2020-08-23 10:45] LABS: Calcium 9.2 mg/dL (8.5-10.1); Magnesium 2.1 mg/dL (1.6-2.6); Potassium 3.9 mmol/L (3.5-5.1)
[2020-08-23 10:51] LABS: Albumin 3.7 g/dL (3.4-5.0); BUN/Creatinine Ratio 15.6; Bilirubin, Total 0.5 mg/dL (0.2-1.0); Total Protein 7.8 g/dL (6.4-8.2)
== END | disposition home or self-care (01) ==
LOC: LAB 09:34
PROVIDERS: ATTEND Internal Medicine
DX: I48.91 Unspecified atrial fibrillation (principal); I10 Essential (primary) hypertension
CPT/HCPCS: 36415; 80053; 80061; 81001; 83735; 84439; 84443; 85025; 85652

== ENCOUNTER → 2020-12-31 | Outpatient (CLI) | payer OTHER ==
[2020-12-31 10:31] LABS: Albumin 3.7 g/dL (3.4-5.0); Calcium 10.1 mg/dL (8.5-10.1)
[2020-12-31 10:39] LABS: BUN/Creatinine Ratio 11.6; Bilirubin, Total 0.6 mg/dL (0.2-1.0); Total Protein 7.7 g/dL (6.4-8.2)
== END | disposition home or self-care (01) ==
LOC: LAB 09:47
PROVIDERS: ATTEND Internal Medicine
DX: E78.5 Hyperlipidemia, unspecified (principal)
CPT/HCPCS: 36415; 80053; 80061

== ENCOUNTER → 2021-07-08 | Outpatient (CLI) | payer OTHER ==
[2021-07-08 10:36] LABS: Basophils # (auto) 0.1 10 ^3/uL (0-0.2); Eosinophils # (auto) 0.4 10 ^3/uL (0-0.8); Hemoglobin 13.1 g/dL (12.2-16.2); Lymphocytes # (auto) 1.2 10 ^3/uL (0.4-5.4); Monocytes # (auto) 0.5 10 ^3/uL (0-1.3); Monocytes % (auto) 7.6 % (0.0-12.0); Neutrophils % (auto) 65.8 % (37.0-80.0); Nucleated Red Blood Cells % 0.1 %
[2021-07-08 10:39] LABS: Hematocrit 38.9 % (36.0-46.0); Lymphocytes % (auto) 19.6 % (10.0-50.0); Mean Corpuscular Hemoglobin 33.5 pg (28.0-32.0); Mean Corpuscular Hgb Conc. 33.6 g/dL (32.0-36.0); Mean Corpuscular Volume 99.7 fL (80.0-100.0); Neutrophils # (auto) 4.1 10 ^3/uL (1.6-8.6); Red Blood Cells 3.91 10^6/uL (4.0-5.20); Red Cell Distribution Width 14.2 % (11.8-14.3); White Blood Cell 6.2 10^3/uL (4.4-10.8)
[2021-07-08 11:13] LABS: Potassium 3.8 mmol/L (3.5-5.1)
[2021-07-08 11:20] LABS: Albumin 3.4 g/dL (3.4-5.0); BUN/Creatinine Ratio 13.2; Bilirubin, Total 0.4 mg/dL (0.2-1.0); Calcium 9.9 mg/dL (8.5-10.1)
== END | disposition home or self-care (01) ==
LOC: LAB 10:08
PROVIDERS: ATTEND Internal Medicine
DX: I10 Essential (primary) hypertension (principal)
CPT/HCPCS: 36415; 80053; 85025; 85652

== ENCOUNTER → 2021-11-22 | Outpatient (CLI) | payer OTHER | END | disposition home or self-care (01) | LOC: XYW 14:26 | PROVIDERS: ATTEND Internal Medicine | DX: I07.1 Rheumatic tricuspid insufficiency (principal); I27.20 Pulmonary hypertension, unspecified; I48.91 Unspecified atrial fibrillation | CPT/HCPCS: 93306 ==

== ENCOUNTER 2022-06-10 21:46 | Inpatient (IN) | payer OTHER ==
[~2022-06-10] VITALS: Ht 167.6 cm; Wt 63.7 kg
[2022-06-11] VITALS (8 sets, daily range): BP systolic 121–174; BP diastolic 55–82
[2022-06-11] MEDS ORDERED: ACET-1156 PO (03:07)
[2022-06-11] MEDS ORDERED: hydrALAZINE HCL 20 MG/ML VL IV PRN (06:15)
[2022-06-11] MEDS ORDERED: ACETAMINOPHEN 325 MG TAB PO PRN (06:15)
[2022-06-11] MEDS ORDERED: ONDANSETRON HCL 4 MG/2 ML VIAL IV PRN (06:15)
[2022-06-11] MEDS ORDERED: NITROGLYCERIN 0.4 MG SL TAB SL PRN (06:15)
[2022-06-11] MEDS ORDERED: DOCUSATE SOD 100 MG CAP PO PRN (06:15)
[2022-06-11] MEDS ORDERED: MORPHINE SULFATE INJ 2 MG/ml SYRG IV PRN (06:15)
[2022-06-11 07:12] LABS: Basophils # (auto) 0 10 ^3/uL (0-0.2); Eosinophils # (auto) 0.3 10 ^3/uL (0-0.8); Hematocrit 40.9 % (36.0-46.0); Lymphocytes # (auto) 0.8 10 ^3/uL (0.4-5.4)
[2022-06-11 07:15] LABS: Basophils % (auto) 0.4 % (0.0-2.0); Eosinophils % (auto) 4.4 % (0.0-7.0); Hemoglobin 13.9 g/dL (12.2-16.2); Lymphocytes % (auto) 10.1 % (10.0-50.0); Mean Corpuscular Hemoglobin 34.1 pg (28.0-32.0); Mean Corpuscular Volume 100.3 fL (80.0-100.0); Monocytes # (auto) 0.6 10 ^3/uL (0-1.3); Neutrophils # (auto) 6.1 10 ^3/uL (1.6-8.6); Neutrophils % (auto) 77.1 % (37.0-80.0); Nucleated Red Blood Cells % 0.4 %; Red Blood Cells 4.08 10^6/uL (4.0-5.20); White Blood Cell 7.9 10^3/uL (4.4-10.8)
[2022-06-11 07:23] LABS: BUN/Creatinine Ratio 14.3 (10.0-20.0); Calcium 9.9 mg/dL (8.5-10.1)
[2022-06-11 07:24] LABS: Albumin 3.2 g/dL (3.4-5.0); Bilirubin, Total 0.6 mg/dL (0.2-1.0); Total Protein 8.2 g/dL (6.4-8.2)
[2022-06-11] MEDS: CARVEDILOL 3.125 MG TAB PO SCH ×2 (09:20→21:58)
[2022-06-11] MEDS: FUROSEMIDE 20 MG/2 ML VIAL IV SCH (09:21)
[2022-06-11] MEDS: FAMOTIDINE (10MG/ML) 2ML VL IV SCH (09:21)
[2022-06-11] MEDS: HYDROcodone-ACET 5/325MG TAB PO PRN ×2 (12:13→21:57)
[2022-06-11] MEDS ORDERED: cefTRIAXone 1GM/50ML D5W 50 ML IV ONE (12:15)
[2022-06-11] MEDS ORDERED: POTASSIUM CHL 20 Meq TABLET PO ONE (12:45)
[2022-06-11 13:09] LABS: INR 2.37 (0.9-1.15); Partial Thromboplastin Time 31.9 sec (24.6-33.4)
[2022-06-11 13:56] LABS: Urine Bacteria FEW /hpf (None Seen); Urine Blood Negative /uL (Negative); Urine Specific Gravity 1.008 (1.001-1.035); Urine WBC 11 /hpf (0 - 5)
[2022-06-11] MEDS: SODIUM CHLOR 0.9% PF (SALINE LOCK) 10ML VIAL/SYR IV SCH ×2 (14:09→22:01)
[2022-06-11] MEDS ORDERED: WARFARIN SODIUM 2.5 MG TAB PO ONE (17:00)
[2022-06-11] MEDS: GABAPENTIN 300 MG CAP PO SCH (21:57)
[2022-06-12] VITALS (7 sets, daily range): BP systolic 131–159; BP diastolic 62–88
[2022-06-12] MEDS: SODIUM CHLOR 0.9% PF (SALINE LOCK) 10ML VIAL/SYR IV SCH ×3 (06:05→21:49)
[2022-06-12] MEDS: GABAPENTIN 100 MG CAP PO SCH ×2 (09:10→13:44)
[2022-06-12] MEDS: FUROSEMIDE 20 MG/2 ML VIAL IV SCH ×2 (09:12→17:57)
[2022-06-12] MEDS: CARVEDILOL 3.125 MG TAB PO SCH (09:14)
[2022-06-12] MEDS: cefTRIAXone 1GM/50ML D5W 50 ML IV SCH (09:15)
[2022-06-12 09:16] LABS: Basophils # (auto) 0 10 ^3/uL (0-0.2); Basophils % (auto) 0.4 % (0.0-2.0); Eosinophils # (auto) 0.4 10 ^3/uL (0-0.8); Hematocrit 41.2 % (36.0-46.0); Lymphocytes # (auto) 1.2 10 ^3/uL (0.4-5.4); Neutrophils # (auto) 6.1 10 ^3/uL (1.6-8.6); Red Cell Distribution Width 14.2 % (11.8-14.3)
[2022-06-12 09:18] LABS: Eosinophils % (auto) 4.5 % (0.0-7.0); Lymphocytes % (auto) 14.4 % (10.0-50.0); Mean Corpuscular Hemoglobin 33.9 pg (28.0-32.0); Mean Corpuscular Hgb Conc. 33.9 g/dL (32.0-36.0); Mean Corpuscular Volume 100.1 fL (80.0-100.0); Monocytes # (auto) 0.9 10 ^3/uL (0-1.3); Monocytes % (auto) 10.2 % (0.0-12.0); Neutrophils % (auto) 70.5 % (37.0-80.0); Red Blood Cells 4.12 10^6/uL (4.0-5.20); White Blood Cell 8.6 10^3/uL (4.4-10.8)
[2022-06-12] MEDS: FAMOTIDINE (10MG/ML) 2ML VL IV SCH (09:19)
[2022-06-12 09:31] LABS: INR 2.4 (0.9-1.15)
[2022-06-12 09:42] LABS: Albumin 2.9 g/dL (3.4-5.0); Calcium 9.7 mg/dL (8.5-10.1); Potassium 3.9 mmol/L (3.5-5.1)
[2022-06-12 09:46] LABS: BUN/Creatinine Ratio 14.3 (10.0-20.0); Bilirubin, Total 0.4 mg/dL (0.2-1.0); Total Protein 8.1 g/dL (6.4-8.2)
[2022-06-12] MEDS ORDERED: CEPH-510 PO (11:41)
[2022-06-12] MEDS ORDERED: POTASSIUM CHL 20 Meq TABLET PO ONE (11:45)
[2022-06-12] MEDS ORDERED: FUROSEMIDE 20 MG/2 ML VIAL IV ONE (13:00)
[2022-06-12] MEDS ORDERED: WARFARIN SODIUM 2.5 MG TAB PO ONE ×2 (14:15→20:00)
[2022-06-12] MEDS: CARVEDILOL 12.5 MG TAB PO SCH (21:49)
[2022-06-12] MEDS: GABAPENTIN 300 MG CAP PO SCH (21:50)
[2022-06-12] MEDS: HYDROcodone-ACET 5/325MG TAB PO PRN (23:00)
[2022-06-13 05:00] VITALS: BP 133/68
[2022-06-13] MEDS: FUROSEMIDE 20 MG/2 ML VIAL IV SCH ×3 (05:49→18:02)
[2022-06-13 06:16] LABS: Basophils # (auto) 0 10 ^3/uL (0-0.2); Basophils % (auto) 0.3 % (0.0-2.0); Eosinophils # (auto) 0.4 10 ^3/uL (0-0.8); Eosinophils % (auto) 3.7 % (0.0-7.0); Hematocrit 38.6 % (36.0-46.0); Hemoglobin 13.3 g/dL (12.2-16.2); Lymphocytes % (auto) 10.2 % (10.0-50.0); Mean Corpuscular Hemoglobin 34.4 pg (28.0-32.0); Mean Corpuscular Hgb Conc. 34.5 g/dL (32.0-36.0); Mean Corpuscular Volume 99.8 fL (80.0-100.0); Monocytes % (auto) 9.6 % (0.0-12.0); Neutrophils # (auto) 7.5 10 ^3/uL (1.6-8.6); Neutrophils % (auto) 76.2 % (37.0-80.0); Red Blood Cells 3.87 10^6/uL (4.0-5.20); Red Cell Distribution Width 13.8 % (11.8-14.3); White Blood Cell 9.9 10^3/uL (4.4-10.8)
[2022-06-13] MEDS: SODIUM CHLOR 0.9% PF (SALINE LOCK) 10ML VIAL/SYR IV SCH ×2 (06:24→14:22)
[2022-06-13 06:29] LABS: INR 2.69 (0.9-1.15)
[2022-06-13 06:41] LABS: Calcium 9.7 mg/dL (8.5-10.1); Magnesium 1.9 mg/dL (1.6-2.6); Potassium 4.1 mmol/L (3.5-5.1)
[2022-06-13 06:42] LABS: BUN/Creatinine Ratio 15.6 (10.0-20.0)
[2022-06-13] MEDS: GABAPENTIN 100 MG CAP PO SCH ×2 (09:02→14:21)
[2022-06-13] MEDS: FAMOTIDINE (10MG/ML) 2ML VL IV SCH (09:04)
[2022-06-13] MEDS: CARVEDILOL 12.5 MG TAB PO SCH (09:10)
[2022-06-13] MEDS: cefTRIAXone 1GM/50ML D5W 50 ML IV SCH (09:11)
[2022-06-13 09:36] VITALS: BP 112/64
[2022-06-13] MEDS ORDERED: LOSARTAN POTASSIUM 25 MG TAB PO SCH (10:00)
[2022-06-13 13:03] VITALS: BP 106/52
[2022-06-13 16:36] VITALS: BP 126/59
[2022-06-13] MEDS ORDERED: WARFARIN SODIUM 1 MG TAB PO ONE (17:00)
[2022-06-13 20:52] VITALS: BP 138/69
== END 2022-06-13 22:15 | disposition home health service (06) | DRG 291 ==
LOC: TELE-DOU 06-11 01:20 → TELE-EAST 06-11 01:20 → UNDOADMIN 06-11 01:20
PROVIDERS: ADMIT Nurse Practitioner Family; ATTEND Internal Medicine
DX: I11.0 Hypertensive heart disease with heart failure (principal); G93.41 Metabolic encephalopathy; I50.43 Acute on chronic combined systolic (congestive) and diastolic (congestive) heart failure; J96.01 Acute respiratory failure with hypoxia; N39.0 Urinary tract infection, site not specified; I48.20 Chronic atrial fibrillation, unspecified; Z20.822 Contact with and (suspected) exposure to COVID-19; Z79.01 Long term (current) use of anticoagulants; Z82.49 Family history of ischemic heart disease and other diseases of the circulatory system; Z88.1 Allergy status to other antibiotic agents; Z88.2 Allergy status to sulfonamides; Z95.0 Presence of cardiac pacemaker
CPT/HCPCS: 36415; 36600; 70450; 71045; 80048; 80053; 81001; 82805; 83735; 83880; 85025; 85379; 85610; 85730; 87086; 87426; 93306; 97110; 97116; 97163; 97530; G0378; J0696; J2405; J3490

== ENCOUNTER → 2022-08-15 | Outpatient (CLI) | payer OTHER ==
[~2022-08-15] MED LIST changes: +ACET-1881 PO; -AMLO-489 PO; +AMLO1TAB22 PO; +CEPH-510 PO; +GABA-1308 PO; -GABA100C9 PO; -LOSA-39 PO; +LOSA100T58 PO; +POTA-228 PO; -POTA10TA32 PO
== END | disposition home or self-care (01) ==
LOC: XYW 14:25
PROVIDERS: ATTEND Internal Medicine
DX: I08.3 Combined rheumatic disorders of mitral, aortic and tricuspid valves (principal); I42.0 Dilated cardiomyopathy; I48.91 Unspecified atrial fibrillation
CPT/HCPCS: 93306

== ENCOUNTER 2022-09-24 17:06 | Inpatient (IN) | payer OTHER ==
[~2022-09-24] VITALS: Ht 157.5 cm; Wt 64.0 kg
[2022-09-24 18:33] LABS: Basophils # (auto) 0 10 ^3/uL (0-0.2); Basophils % (auto) 0.4 % (0.0-2.0); Eosinophils # (auto) 0.4 10 ^3/uL (0-0.8); Eosinophils % (auto) 4.9 % (0.0-7.0); Lymphocytes # (auto) 0.9 10 ^3/uL (0.4-5.4); Mean Corpuscular Volume 100.5 fL (80.0-100.0); Monocytes # (auto) 0.6 10 ^3/uL (0-1.3); Nucleated Red Blood Cells % 0.1 %
[2022-09-24 18:34] LABS: Hematocrit 32.1 % (36.0-46.0); Hemoglobin 10.8 g/dL (12.2-16.2); Lymphocytes % (auto) 11.2 % (10.0-50.0); Mean Corpuscular Hemoglobin 33.9 pg (28.0-32.0); Mean Corpuscular Hgb Conc. 33.7 g/dL (32.0-36.0); Monocytes % (auto) 7.2 % (0.0-12.0); Neutrophils # (auto) 6.2 10 ^3/uL (1.6-8.6); Neutrophils % (auto) 76.3 % (37.0-80.0); White Blood Cell 8.1 10^3/uL (4.4-10.8)
[2022-09-24 18:47] LABS: Albumin 2.9 g/dL (3.4-5.0); Calcium 11.8 mg/dL (8.5-10.1); Potassium 3.6 mmol/L (3.5-5.1)
[2022-09-24 18:51] LABS: BUN/Creatinine Ratio 18.2 (10.0-20.0); Bilirubin, Total 0.5 mg/dL (0.2-1.0); Total Protein 7.5 g/dL (6.4-8.2)
[2022-09-24 19:48] LABS: Magnesium 1.6 mg/dL (1.6-2.6)
[2022-09-24] MEDS ORDERED: FUROSEMIDE 40 MG/4 ML VIAL IV ONE (21:15)
[2022-09-24] MEDS ORDERED: AZITHROMYCIN 500MG/ 250ML 250 ML IV ONE (21:15)
[2022-09-24] MEDS ORDERED: NITROGLYCERIN 0.4 MG SL TAB SL PRN (23:00)
[2022-09-24] MEDS ORDERED: MORPHINE SULFATE INJ 2 MG/ml SYRG IV PRN (23:00)
[2022-09-24] MEDS ORDERED: ONDANSETRON HCL 4 MG/2 ML VIAL IV PRN (23:00)
[2022-09-24] MEDS ORDERED: ACETAMINOPHEN 325 MG TAB PO PRN (23:00)
[2022-09-24 23:24] LABS: INR 2.49 (0.9-1.15); Partial Thromboplastin Time 33.3 SEC (24.5-34.5)
[2022-09-25 01:32] LABS: Urine Bacteria NONE SEEN /hpf (None Seen); Urine Blood Negative /uL (Negative); Urine Hyaline Cast FEW /lpf (0 - 2); Urine Specific Gravity 1.012 (1.001-1.035); Urine WBC 3 /hpf (0 - 5)
[2022-09-25] MEDS ORDERED: FUROSEMIDE 20 MG/2 ML VIAL IV SCH (06:00)
[2022-09-25 06:29] LABS: Basophils # (auto) 0 10 ^3/uL (0-0.2); Basophils % (auto) 0.5 % (0.0-2.0); Eosinophils # (auto) 0.5 10 ^3/uL (0-0.8); Eosinophils % (auto) 6.9 % (0.0-7.0); Hematocrit 34.5 % (36.0-46.0); Hemoglobin 11.7 g/dL (12.2-16.2); Lymphocytes # (auto) 0.8 10 ^3/uL (0.4-5.4); Lymphocytes % (auto) 11.7 % (10.0-50.0); Mean Corpuscular Hemoglobin 34.5 pg (28.0-32.0); Mean Corpuscular Hgb Conc. 34.1 g/dL (32.0-36.0); Mean Corpuscular Volume 101.3 fL (80.0-100.0); Monocytes # (auto) 0.6 10 ^3/uL (0-1.3); Monocytes % (auto) 8.2 % (0.0-12.0); Neutrophils # (auto) 5.3 10 ^3/uL (1.6-8.6); Neutrophils % (auto) 72.7 % (37.0-80.0); Red Cell Distribution Width 14.8 % (11.8-14.3); White Blood Cell 7.2 10^3/uL (4.4-10.8)
[2022-09-25 06:42] LABS: Potassium 3.4 mmol/L (3.5-5.1)
[2022-09-25 06:50] LABS: BUN/Creatinine Ratio 19.4 (10.0-20.0); Bilirubin, Total 0.6 mg/dL (0.2-1.0); Calcium 11.8 mg/dL (8.5-10.1); Total Protein 7.8 g/dL (6.4-8.2)
[2022-09-25 08:00] VITALS: BP 147/56
[2022-09-25 09:06] LABS: INR 2.47 (0.9-1.15)
[2022-09-25] MEDS ORDERED: AZITHROMYCIN 500MG/ 250ML 250 ML IV SCH (10:00)
[2022-09-25] MEDS ORDERED: amLODIPine BESYLATE 5 MG TAB PO SCH (10:00)
[2022-09-25] MEDS ORDERED: SACUBITRIL-VALSARTAN 24mg/26mg TAB PO SCH (10:00)
[2022-09-25] MEDS ORDERED: METOPROLOL SUCCINATE XL 50 MG TAB PO SCH (10:00)
[2022-09-25] MEDS ORDERED: PANTOPRAZOLE 40 MG TAB PO SCH (10:00)
[2022-09-25] MEDS ORDERED: FUROSEMIDE 40 MG/4 ML VIAL IV ONE (12:15)
[2022-09-25] MEDS ORDERED: FURO1TAB31 PO (16:27)
[2022-09-25] MEDS ORDERED: WARFARIN SODIUM 2 MG TAB PO SCH (17:00)
== END 2022-09-25 17:48 | disposition home health service (06) | DRG 291 ==
LOC: EDBD 17:06 → EDUNIT# 17:06 → ER 17:06 → TELE 23:02
PROVIDERS: ADMIT Nurse Practitioner; ATTEND Internal Medicine
DX: I11.0 Hypertensive heart disease with heart failure (principal); G93.41 Metabolic encephalopathy; J18.9 Pneumonia, unspecified organism; I50.21 Acute systolic (congestive) heart failure; D68.9 Coagulation defect, unspecified; I48.91 Unspecified atrial fibrillation; D64.9 Anemia, unspecified; E78.5 Hyperlipidemia, unspecified; I27.20 Pulmonary hypertension, unspecified; R74.8 Abnormal levels of other serum enzymes; Z66 Do not resuscitate; Z95.0 Presence of cardiac pacemaker; Z82.49 Family history of ischemic heart disease and other diseases of the circulatory system; Z88.1 Allergy status to other antibiotic agents; Z88.2 Allergy status to sulfonamides; Z90.710 Acquired absence of both cervix and uterus
CPT/HCPCS: 36415; 70450; 71045; 74176; 80053; 81001; 83690; 83735; 83880; 84484; 85025; 85610; 85730; 96365; 96375; G0378